=== PATIENT | male | born 1945 | race African-American/Black ===

== ENCOUNTER 2016-08-16 11:19 | Inpatient (IN) ==
[2016-08-16 12:44] LABS: Basophils # 0.1 10*3/uL (0.0-0.2); Basophils % 0.4 % (0.0-0.8); Eosinophils % 0.1 % (0.00-10.9); Hemoglobin 13.2 GM/DL (14.0-18.0); Immature Granulocytes % 1.2 %; Immature Granulocytes Absolute 0.17 #; Lymphocytes # 1.3 10*3/uL (1.4-4.0); Mean Corpuscular HGB Conc 32.2 GM/DL (32-36); Mean Corpuscular Hemoglobin 30 PG (27-34); Mean Corpuscular Volume 91.7 FL (87-102); Mean Platelet Volume 10.1 FL (9.6-12.0); Monocytes # 1.6 10*3/uL (0.11-0.8); Monocytes % 11.4 % (1.7-12.7); Neutrophils # 11.1 10*3/uL (1.4-7.4); Neutrophils % 77.9 % (38.7-73.9); Platelet Count 425 T/CUMM (130-400); Red Blood Count 4.47 MC/CUMM (3.8-5.5); Red Cell Distribution Width 12.3 % (9.3-17.3); White Blood Count 14.3 T/CUMM (4-12)
[2016-08-16 13:13] LABS: Albumin 3.2 G/DL (3.4-5.0); Bilirubin,Total 1.8 MG/DL (0.2-1.0); Calcium 9.3 MG/DL (8.5-10.1); Osmolality,Calculated 274.2 MOS/KG (273-304); Potassium 3.9 MMOL/L (3.5-5.1); Total Protein 8.9 G/DL (6.4-8.3)
--- NOTE | 2016-08-16 13:36 | Emergency Department Note ---
Arrival - Arrival Chief Complaint: Extremity Problem Stated Complaint: gout ED Nursing Triage Note: PT C/O PAIN AND EDEMA TO BILATERAL FEET. STATES RIGHT FOOT HAS BEEN HURTING X1 WEEK AND LEFT FOOT STARTED HURTING THURSDAY. PT STATES TAKING HIS GOUT MEDS WITHOUT RELIEF. Mode of Arrival: Wheelchair Limitations: No Limitations Source: Patient, Family, RN Notes Reviewed Time Seen by Provider: 08/16/16 12:14 - History of Present Illness HPI Narrative: 70yo black male presents to ED with CC of edema and pain to bilateral lower extremities x 1 week. Accompanied by family member. Symptoms are similar to symptoms he has had with gout. He describes the pain as an 8 on a 1-[address] Harris. Pt has not consulted PCP about these symptoms. PMHx significant for HTN, NIDDM, colon cancer in 2007, gout. Patient is normotensive today. Patient states glucometers have been running between 120 and 150. Allergies/Adverse Reactions: Allergies Allergy/AdvReac Type Severity Reaction Status Date / Time No Known Allergies Allergy Verified 08/16/16 11:37 Review of System - Review of System 12 point system: reviewed and no additional remarkable complaints except as stated - Review of System Constitutional: Present: chills Musculoskeletal: Present: joint swelling (Bilateral lower extremities, left worse than right), leg pain Endocrine: Present: polyuria (Says hemoglobin A1c was done about 6 months ago) Medical,Surgical,& Family Hx - Medical History Cardio: History of: Hypertension Endocrine: History of: Diabetes Mellitus (NIDDM) Rheumatology: History of;: Gout Gastrointestinal: History of: Gastrointestinal Cancer (COLON CANCER 2007) - Family History Family History: Reports;: Family Diabetes - Social History Smoking Status: Never smoker Frequency of Alcohol Use: None Type of Drug Use: None Exam Physical Examination: Exam - General General appearance: alert, in no apparent distress - Head Head exam: Present: atraumatic, normocephalic - Eye Eye exam: Present: normal appearance, PERRL, EOMI - ENT ENT exam: Present: normal exam, normal oropharynx, mucous membranes moist - Neck Neck exam: Present: normal inspection, full ROM - Chest Chest inspection: Present: normal inspection, symmetric chest wall rise - Respiratory Respiratory exam: Present: normal lung sounds bilaterally. Absent: rales, rhonchi, wheezes - Cardiovascular Cardiovascular exam: Present: regular rate, normal rhythm, normal heart sounds - Abdominal Exam Abdominal exam: Present: soft, normal bowel sounds. Absent: distention, tenderness - Extremities Exam Extremities exam: Present: Edema to bilateral lower extremities, left worse than right, limited ROAM due to pain, patient says he cannot walk. - Back Exam Back exam: Present: normal inspection - Neurological Exam Neurological exam: Present: alert, oriented X3 - Psychiatric Psychiatric exam: Present: normal affect, normal mood - Skin Skin exam: Present: warm, dry, intact Vital Signs: Vital Signs Temperature 96.8 F L 08/16/16 12:10 Pulse Rate 87 08/16/16 12:10 Respiratory Rate 18 08/16/16 12:10 Blood Pressure 124/62 08/16/16 12:10 O2 Sat by Pulse Oximetry 96 08/16/16 11:33 Course - Consultations Time: 15:45 (Hospitalist service notified of patient presence and status.) Time: 16:10 (Hospitalist here to assess patient. Will admit.) Results - Labs CBC & BMP: 08/16/16 12:22 08/16/16 12:22 Lab Results: I have reviewed the patients labs Labs: Laboratory Tests 08/16/16 12:22 Uric Acid 4.7 - Diagnostic Findings Procedure: Ultrasound: report reviewed by me (No DVT) Disposition Clinical Impression: Cellulitis of lower extremity Disposition: Disch/Xfer-[facility]
--- NOTE | 2016-08-16 15:40 | Ultrasound Report ---
Exam: US venous doppler LE BI Indication: Erythema edema Date: 08/16/2016 1:37 PM Findings: Grayscale color flow duplex/Doppler imaging and spectral analysis waveform imaging was performed with real-time ultrasound with image stored and captured. The right common femoral, superficial femoral, popliteal saphenous veins are patent with normal augmentation and compression. There is no evidence of popliteal or Slater's cyst. Normal wave form analysis present. Normal color flow The left common femoral, superficial femoral, popliteal saphenous veins are patent with normal augmentation and compression. There is no evidence of popliteal or Slater's cyst. Normal wave form analysis present. Normal color flow Impression: 1. No DVT PROCEDURE INTERPRETED AT [facility] DEPARTMENT OF RADIOLOGY Final Report Signed by: Dr. Yao Tomlinson
--- NOTE | 2016-08-16 16:36 | Hospitalist History & Physical ---
<Vladislav Roa - Last Filed: 08/16/16 16:29> Assessment and Plan - Time spent with patient Time spent with patient: Less than 30 minutes (1) Cellulitis of lower extremity Status: Acute Assessment and plan: Moderate edema in lower extremities bilaterally. Very warm to the touch. Admit patient. Start IV antibiotics. Current Visit: Yes (2) Diabetes mellitus Status: Acute Assessment and plan: Accu-Cheks ACHS. Sliding scale protocol. Current Visit: Yes (3) Hypertension Status: Acute Assessment and plan: Continue home medications. Current Visit: Yes History of Present Illness Chief complaint: lower leg edema/pain History of present illness: Mr. Gale is a 70 year old male with a past medical history significant for diabetes mellitus, hypertension, gout who presents to the ER today with complaints of bilateral edema and pain in the lower extremities 1 week. Patient states that the pain first began in his right lower leg about 1 week ago with swelling. About 3 days ago, he began to experience the same pain in his left leg. He states that this inflammation and edema is concentrated in the ankles. Patient does have gout and regularly takes allopurinol as prophylaxis. He states that this pain is very similar to gouty pain, however it is never lasted for this length of time. On exam, patient is lying in bed in no apparent distress. He does have several family members at bedside. Patient's lower extremities are moderately edematous, erythematous, very warm to the touch, and diffusely tender. He denies headache, chest pain, palpitations, abdominal pain, numbness or tingling not otherwise described. Pertinent labs WBC 14.3, hemoglobin 13.2, hematocrit 41.0, sodium 134, chloride 97, BUN 27, creatinine 1.8, glucose 135, uric acid 4.7. Venous Doppler was negative for blood clot. This does not appear to be an acute gout flare. I suspect this may be a cellulitis of some sort. He will be admitted to the hospital medicine team for further evaluation and management. Home Medications Medication Instructions Recorded Confirmed Type Allopurinol [Allopurinol] 300 mg PO DAILY 08/16/16 08/16/16 History Carvedilol [Carvedilol] 6.25 mg PO DAILY 08/16/16 08/16/16 History Lisinopril [Lisinopril] 40 mg PO DAILY 08/16/16 08/16/16 History Metformin HCl [Metformin HCl] 500 mg PO DAILY W/SUPPER 08/16/16 08/16/16 History Potassium Chloride [Klor-Con 8] 8 meq PO BID 08/16/16 08/16/16 History hydroCHLOROthiazide 25 mg PO DAILY 08/16/16 08/16/16 History [Hydrochlorothiazide] sitaGLIPtin [Januvia] 100 mg PO DAILY 08/16/16 08/16/16 History Allergies Allergy/AdvReac Type Severity Reaction Status Date / Time No Known Allergies Allergy Verified 08/16/16 11:37 Medical,Surgical,& Family Hx - Medical History Cardio: History of: Hypertension Endocrine: History of: Diabetes Mellitus (NIDDM) Rheumatology: History of;: Gout Gastrointestinal: History of: Gastrointestinal Cancer (COLON CANCER 2007) - Family History Family History: Reports;: Family Diabetes - Social History Smoking Status: Never smoker Frequency of Alcohol Use: None Type of Drug Use: None Marital Status: Single Lives With:: Alone Functional capacity: independent ambulation - Constitutional Constitutional: Absent: chills, fever(s), headache(s), weakness - EENT Eyes: Absent: blurry vision, loss of vision Ears: Absent: decreased hearing, ear pain Nose, mouth and throat: Absent: headache(s), nasal congestion, neck pain, sore throat - Cardiovascular Cardiovascular: Present: edema. Absent: chest pain at rest, chest pain with activity, dyspnea, dyspnea on exertion, orthopnea - Respiratory Respiratory: Absent: cough, dyspnea, hemoptysis, wheezing, snoring - Gastrointestinal Gastrointestinal: Absent: abdominal pain, change in bowel habits, coffee ground emesis, constipation, diarrhea, nausea - Genitourinary Genitourinary: Absent: difficulty urinating, dysuria, flank pain, hematuria - Musculoskeletal Musculoskeletal: Present: joint swelling. Absent: arthralgias, back pain - Neurological Neurological: Absent: abnormal gait, abnormal speech, numbness, paresthesias - Psychiatric Psychiatric: Absent: anxiety, confusion, depression - Endocrine Endocrine: Absent: cold intolerance, fatigue - Hematologic/Lymphatic Hematologic/Lymphatic: Absent: easy bleeding, easy bruising Exam - Constitutional Vitals: Period Temp Pulse Resp BP Sys/Pierre Pulse Ox Last 24 Hr 96.8 F-96.8 F 87-87 18-18 124-124/62-62 96 General appearance: over weight - Head Head exam: Present: normocephalic, atraumatic. Absent: abrasion, laceration - Eye Eye exam: Present: EOMI. Absent: conjunctival injection, nystagmus Pupils: Present: BHAVANI, normal accommodation. Absent: constricted, dilated - ENT ENT exam: Present: normal exam, normal external ear exam - Neck Neck exam: Absent: lymphadenopathy, meningismus, tenderness - Respiratory Respiratory exam: Present: clear to auscultation bilaterally. Absent: chest wall tenderness, decreased breath sounds, rales, rhonchi, stridor - Cardiovascular Cardiovascular exam: Present: regular rate and rhythm. Absent: bradycardia, carotid bruit - GI/Abdominal GI/Abdominal exam: Present: normal bowel sounds, soft. Absent: ascites, distended, guarding, mass, organomegaly - Extremities Exam Extremities exam: Present: edema, other (cellulitis in left lower leg). Absent : normal capillary refill - Back Exam Back exam: Absent: CVA tenderness (L), CVA tenderness (R), vertebral tenderness - Neurological Exam Neurological exam: Present: alert, oriented X3, CN II-XII intact - Psychiatric Psychiatric exam: Present: normal affect, normal mood - Skin Skin exam: Present: warm, erythema Results - Labs CBC & BMP: 08/16/16 12:22 08/16/16 12:22 Lab Results: I have reviewed the past 24 hour labs <Milagros Rangel R - Last Filed: 08/16/16 20:33> Assessment and Plan (1) Cellulitis of lower extremity Status: Acute Assessment and plan: cont zosyn, blood cx times 2 Current Visit: Yes (2) Acute on chronic renal failure Status: Acute Assessment and plan: renal us, monitor bmp during diuresis Current Visit: Yes (3) Diabetes mellitus Status: Acute Assessment and plan: restart home meds Current Visit: Yes (4) Hypertension Status: Acute Assessment and plan: avoid diuretics and andie/arb for now Current Visit: Yes (5) Edema Status: Acute Assessment and plan: bilateral LE, echo, bnp Current Visit: Yes History of Present Illness History of present illness: Mr. Gale is a 70 year old male seen and examined. He was interviewed and history and physical reviewed and edited. Medical,Surgical,& Family Hx - Surgical History Orthopedic Surgeries: Surgical HX of;: Orthopedic Surgery Exam - Constitutional Vitals: Period Temp Pulse Resp BP Sys/Pierre Pulse Ox Last 24 Hr 100.9 F 103 20 95/61 96 - Skin Skin exam: Absent: rash Results - Labs CBC & BMP: 08/16/16 12:22 08/16/16 12:22 - Diagnostic Findings Procedure: Chest x-ray: report reviewed by me (bilateral shoulder arthritis and rotator cuff ), Ultrasound: report reviewed by me (no dvt )
[2016-08-16] MEDS ORDERED: ACETAMINOPHEN 325 MG TABLET PO PRN ×2 (16:53→17:59)
[2016-08-16] MEDS ORDERED: LACTULOSE 20 GM/30 ML UDCUP PO PRN ×2 (16:53→17:59)
[2016-08-16] MEDS ORDERED: ONDANSETRON 4 MG/2 ML VIAL IV PRN ×2 (16:53→17:59)
[2016-08-16] MEDS ORDERED: DEXTROSE 50% 25 GM/50 ML VIAL IV PRN ×2 (16:53→17:59)
[2016-08-16] MEDS ORDERED: MORPHINE 2 MG/1 ML SYRINGE IV PRN (16:53)
[2016-08-16] MEDS ORDERED: GLUCAGON 1 MG VIAL IM PRN ×2 (16:53→17:59)
[2016-08-16] MEDS ORDERED: ZALEPLON 5 MG CAPSULE PO PRN ×2 (16:53→17:59)
[2016-08-16] MEDS ORDERED: DOCUSATE SODIUM 100 MG CAPSULE PO PRN (16:53)
[2016-08-16] MEDS ORDERED: ENOXAPARIN 40 MG/0.4 ML SYRINGE SUBCUT SCH (17:00)
[2016-08-16] MEDS ORDERED: SODIUM CHLORIDE 0.9% 100 ML IV ONE (18:47)
--- NOTE | 2016-08-16 19:06 | XRay Report ---
Exam: XR chest 1V portable Date: 08/16/2016 5:59 PM Indication: Shortness of breath Comparison: 02/12/2008 Technical:AP portable Findings: The heart is normal in size. Lateral marginal osteophytes are present. High riding appearance of the humeral head present on the right. No obvious infiltrate or effusion. Mediastinum is intact. Impression: 1. No acute cardiopulmonary pathology 2. Degenerative spondylosis change thoracic spine 3. Arthritic change of the shoulders bilaterally with possible rotator cuff pathology of the right with high riding appearance or old trauma not otherwise clarified PROCEDURE INTERPRETED AT [facility] DEPARTMENT OF RADIOLOGY Final Report Signed by: Dr. Yao Tomlinson
[2016-08-16] MEDS: FUROSEMIDE 40 MG/4 ML VIAL IV SCH (19:09)
[2016-08-16] MEDS: cefTRIAXone 1,000 MG in SODIUM CHLORIDE 0.9% 100 ML IV SCH (19:09)
[2016-08-16] MEDS: ENOXAPARIN 40 MG/0.4 ML SYRINGE SUBCUT SCH (19:10)
[2016-08-16] MEDS ORDERED: INSULIN LISPRO 100 UNIT/ML SUBCUT SCH ×2 (21:00)
[2016-08-16] MEDS: PIPERACILLIN/TAZOBACTAM 3,375 MG in SODIUM CHLORIDE 0.9% 100 ML IV SCH (21:42)
[2016-08-16] MEDS: INSULIN LISPRO 100 UNIT/ML SUBCUT SCH (21:45)
[2016-08-17 04:09] LABS: Basophils # 0.1 10*3/uL (0.0-0.2); Basophils % 0.5 % (0.0-0.8); Eosinophils % 0.3 % (0.00-10.9); Immature Granulocytes % 1.3 %; Immature Granulocytes Absolute 0.16 #; Lymphocytes # 2.1 10*3/uL (1.4-4.0); Lymphocytes % 16.8 % (21.2-54.2); Mean Corpuscular HGB Conc 33.3 GM/DL (32-36); Mean Corpuscular Hemoglobin 30 PG (27-34); Mean Corpuscular Volume 88.7 FL (87-102); Mean Platelet Volume 10.3 FL (9.6-12.0); Monocytes # 1.6 10*3/uL (0.11-0.8); Monocytes % 12.6 % (1.7-12.7); Neutrophils # 8.4 10*3/uL (1.4-7.4); Neutrophils % 68.5 % (38.7-73.9); Platelet Count 427 T/CUMM (130-400); Red Blood Count 4.06 MC/CUMM (3.8-5.5); Red Cell Distribution Width 12.2 % (9.3-17.3); White Blood Count 12.3 T/CUMM (4-12)
[2016-08-17 04:35] LABS: Calcium 8.6 MG/DL (8.5-10.1); Potassium 3.7 MMOL/L (3.5-5.1)
[2016-08-17] MEDS: PIPERACILLIN/TAZOBACTAM 3,375 MG in SODIUM CHLORIDE 0.9% 100 ML IV SCH ×3 (06:12→21:32)
[2016-08-17] MEDS ORDERED: FUROSEMIDE 40 MG/4 ML VIAL IV SCH (09:00)
[2016-08-17] MEDS ORDERED: CARVEDILOL 3.125 MG TABLET PO SCH (09:00)
[2016-08-17] MEDS ORDERED: CARVEDILOL 6.25 MG TABLET PO SCH (09:00)
[2016-08-17] MEDS: INSULIN LISPRO 100 UNIT/ML SUBCUT SCH ×3 (09:05→16:56)
[2016-08-17] MEDS: PANTOPRAZOLE 40 MG TABLET PO SCH (09:17)
[2016-08-17] MEDS: sitaGLIPtin 100 MG TABLET PO SCH (09:18)
[2016-08-17] MEDS: FUROSEMIDE 40 MG/4 ML VIAL IV SCH (10:56)
--- NOTE | 2016-08-17 11:05 | Ultrasound Report ---
Exam: US renal Bilateral Date: 08/17/2016 5:59 PM Indication: Abnormal creatinine acute versus chronic Comparison: None Findings: Right kidney. 10.6 x 5.2 x 6.2 cm there is mild increased echogenicity. No hydronephrosis or perinephric fluid collection. A tiny cysts measures 10 x 9 mm on the mid pole region. The left kidney measures 11.7 x 7 x 6 cm 18 x 15 x 13 mm cyst in the upper pole. Increased echogenicity is present. Impression: 1. Simple appearing cysts of the kidneys bilaterally 2. Mild medical renal disease without obstructive uropathy Ultrasound images were stored and captured PROCEDURE INTERPRETED AT [facility] DEPARTMENT OF RADIOLOGY Final Report Signed by: Dr. Yao Tomlinson
--- NOTE | 2016-08-17 13:32 | Hospitalist Progress Note ---
Assessment and Plan (1) Cellulitis of lower extremity Status: Acute Assessment and plan: cont zosyn, blood cx times 2 pending Current Visit: Yes (2) Acute on chronic renal failure Status: Acute Assessment and plan: renal us shows medical renal disease will stop diuresis Current Visit: Yes (3) Diabetes mellitus Status: Acute Assessment and plan: Continue Januvia would avoid metformin Current Visit: Yes (4) Hypertension Status: Acute Assessment and plan: Patient's blood pressures been running low not high. Hold all blood pressure medicines, will check Current Visit: Yes (5) Edema Status: Acute Assessment and plan: bilateral LE improved with Lasix, echo pending, bnp low not high but his hyponatremia improved with Lasix. Will check orthostatics. Current Visit: Yes Hospitalist: Subjective Interval history: Patient swelling in his leg is much better today. Erythema is almost completely resolved. His BNP was low and I have DC'd his Lasix. Patient still has been no effort to get out of bed. Will have PT evaluate him tomorrow. Exam - Constitutional Vitals: Period Temp Pulse Resp BP Sys/Pierre Pulse Ox Last 24 Hr 98.1 F-102.9 F 83-103 20-20 95-127/47-64 95-96 Exam: Heart Rate-[RRR] Lungs-[CTAB] GI-[+bs soft, NT] Ext-[slight edema but no erythema] Neuro [Motor 5/5], [alert and oriented times 3] psych [normal mood and affect] General [no acute distress] Results - Labs CBC & BMP: 08/17/16 03:24 08/17/16 03:24 Lab Results: I have reviewed the past 24 hour labs Labs: Blood cultures 2 are pending - Diagnostic Findings Procedure: Ultrasound: report reviewed by me (Medical renal disease without evidence of obstruction)
[2016-08-17] MEDS ORDERED: SODIUM CHLORIDE 0.9% 500 ML IV ONE (14:08)
[2016-08-17] MEDS: SODIUM CHLORIDE 0.9% 1,000 ML IV SCH (14:58)
[2016-08-17] MEDS: cefTRIAXone 1,000 MG in SODIUM CHLORIDE 0.9% 100 ML IV SCH (16:49)
[2016-08-17] MEDS: ENOXAPARIN 40 MG/0.4 ML SYRINGE SUBCUT SCH (17:47)
--- NOTE | 2016-08-17 17:52 | XRay Report ---
Exam: XR knee 3V RT Date: 08/17/2016 2:07 PM Indication: Pain and swelling Comparison: None Technical: AP lateral Findings: Small joint effusion is present in the suprapatella bursa. Mild narrowing of the lateral aspect joint with moderate narrowing of the medial joint space and patellofemoral joint space with spur formation along the superior inferior posterior margins of the patella and medial aspect of the femoral condyle and tibial plateau. The distal femur proximal tibia and fibula and patella reveal no fracture. Impression: 1. Tricompartment degenerative osteoarthritis as described with small joint effusion without fracture PROCEDURE INTERPRETED AT [facility] DEPARTMENT OF RADIOLOGY Final Report Signed by: Dr. Yao Tomlinson
--- NOTE | 2016-08-17 17:57 | ECHO Report ---
Gt Gale Exam Date: 08/17/2016 10:05 Referring Physician: Technologist: Lana Chang Age: 70 Ht (in): 68 Wt (lb): 185 Gender: M Exam Location: [facility] Echo Indications: diabetes, HTN, SOB, edema, acute renal failure BP: 118 / 64 HR: 86 Rhythm: Sinus Technical Quality: Fair IMPRESSIONS Normal LV systolic function, ejection fraction 60%. Grade 1/4 diastolic dysfunction. Mild to moderate concentric left ventricular hypertrophy. Aortic sclerosis without stenosis. Trace tricuspid regurgitation. MEASUREMENTS (Male / Female) Normal Values 2D ECHO LV Diastolic Diameter PLAX 4.0 cm 4.2 - 5.9 / 3.9 - 5.3 cm LV Systolic Diameter PLAX 3.0 cm LV Fractional Shortening PLAX 25.4 % IVS Diastolic Thickness 1.6 cm 0.6 - 1.0 / 0.6 - 0.9 cm LVPW Diastolic Thickness 1.2 cm 0.6 - 1.0 / 0.6 - 0.9 cm RV Internal Dim ED PLAX 2.6 cm Aortic Root Diameter 2.4 cm LA Systolic Diameter LX 3.5 cm 3.0 - 4.0 / 2.7 - 3.8 cm DOPPLER TR Peak Velocity 175.0 cm/s TR Peak Gradient 12.3 mmHg FINDINGS Left Ventricle Normal left ventricular cavity size. Mild to moderate concentric left ventricular hypertrophy with diastolic dysfunction. Left ventricular ejection fraction is estimated at 60 %. Right Ventricle Normal right ventricular size. Right Atrium Normal right atrial size. Left Atrium Normal left atrial size. Mitral Valve Mild mitral valve sclerosis. Aortic Valve Mild aortic valve sclerosis without stenosis or regurgitation. Tricuspid Valve Morphologically normal tricuspid valve. Trace tricuspid valve regurgitation. Pulmonic Valve Morphologically normal pulmonic valve. Pericardium No pericardial effusion. Aorta Normal size aortic root and proximal ascending aorta. Marely Salamanca MD (Electronically Signed) Final Date: 17 August 2016 17:56
[2016-08-17] MEDS: ACETAMINOPHEN 325 MG TABLET PO PRN (21:38)
[2016-08-18] MEDS: INSULIN LISPRO 100 UNIT/ML SUBCUT SCH ×5 (04:14→21:00)
[2016-08-18] MEDS: SODIUM CHLORIDE 0.9% 1,000 ML IV SCH (04:16)
[2016-08-18 04:51] LABS: Basophils # 0.1 10*3/uL (0.0-0.2); Basophils % 0.5 % (0.0-0.8); Eosinophils # 0.1 10*3/uL (0.0-0.87); Eosinophils % 0.5 % (0.00-10.9); Hematocrit 34.8 VOL% (42.0-52.0); Hemoglobin 11.6 GM/DL (14.0-18.0); Immature Granulocytes Absolute 0.12 #; Lymphocytes # 1.9 10*3/uL (1.4-4.0); Lymphocytes % 15.4 % (21.2-54.2); Mean Corpuscular HGB Conc 33.3 GM/DL (32-36); Mean Corpuscular Hemoglobin 30 PG (27-34); Mean Platelet Volume 10.6 FL (9.6-12.0); Monocytes # 1.5 10*3/uL (0.11-0.8); Neutrophils # 8.9 10*3/uL (1.4-7.4); Neutrophils % 70.6 % (38.7-73.9); Platelet Count 451 T/CUMM (130-400); Red Blood Count 3.91 MC/CUMM (3.8-5.5); Red Cell Distribution Width 12.3 % (9.3-17.3); White Blood Count 12.6 T/CUMM (4-12)
[2016-08-18 05:12] LABS: Calcium 8.6 MG/DL (8.5-10.1); Osmolality,Calculated 277.5 MOS/KG (273-304)
[2016-08-18] MEDS: PIPERACILLIN/TAZOBACTAM 3,375 MG in SODIUM CHLORIDE 0.9% 100 ML IV SCH ×3 (06:12→22:05)
[2016-08-18] MEDS: PANTOPRAZOLE 40 MG TABLET PO SCH (09:30)
[2016-08-18] MEDS: sitaGLIPtin 100 MG TABLET PO SCH (09:30)
--- NOTE | 2016-08-18 13:06 | Hospitalist Progress Note ---
Assessment and Plan (1) Cellulitis of lower extremity Status: Acute Assessment and plan: 1)cellulitis RLE- his legs look normal today. HE says all the edema and erythema has resolved.He has been afebrile. His WBC is near normal. He is tolerating antibiotics. 2)EDSON- resolved with hydration, but I suspect the Duexis he has been on contributed to his renal failure. He should take tylenol for his arthritis pain. renal US showed medical renal disease. 3)right hand MCP stiffness and swelling- denies trauma, suspect DJD from OA. Xray today. 4)debility- PT to see 5)orthostatic hypotension- resolved. Early SBP recorded in the 90s and antiHTN meds held. echo with normal EF. Current Visit: Yes (2) Diabetes mellitus Status: Chronic Current Visit: Yes (3) Hypertension Status: Acute Current Visit: Yes (4) Acute on chronic renal failure Status: Resolved Current Visit: Yes (5) Edema Status: Resolved Current Visit: Yes Hospitalist: Subjective Interval history: Mr Gale feels ok today though his right hand is stiff at the MCP joints of his 2nd and 3rd fingers- normal at wrist and elbow. He has findings of OA at the DIP and PIP joints of both hands with deviation of the fingers, but he moves better at the other joints. He was on Duexis for his OA, and he says it helped. The NSAID component may have contributed to his mild worsening of his renal failure which has improved with hydration. Exam - Constitutional Vitals: Period Temp Pulse Resp BP Sys/Pierre Pulse Ox Last 24 Hr 97.5 F-101.7 F 83-96 19-24 113-135/58-72 97-99 General appearance: normal weight, no acute distress - Head Head exam: Present: normocephalic, atraumatic - Eye Eye exam: Present: EOMI. Absent: scleral icterus - Respiratory Respiratory exam: Present: clear to auscultation bilaterally - Cardiovascular Cardiovascular exam: Present: regular rate and rhythm - GI/Abdominal GI/Abdominal exam: Present: normal bowel sounds, soft. Absent: tenderness - Extremities Exam Extremities exam: Present: other (see hand exam in HPI). Absent: edema - Neurological Exam Neurological exam: Present: alert, oriented X3 - Psychiatric Psychiatric exam: Present: normal affect, normal mood - Skin Skin exam: Present: warm, dry Results - Labs CBC & BMP: 08/18/16 02:38 08/18/16 02:38 Lab Results: I have reviewed the past 24 hour labs
--- NOTE | 2016-08-18 15:48 | XRay Report ---
Exam: XR hand 2V RT Date: 08/18/2016 1:02 PM Indication: Stiffness swelling Comparison: None Technical: AP lateral image Findings: The radius and ulna reveal no fractures is narrowing of the radiocarpal joint space the carpal bones are intact. The metacarpals reveal no obvious fracture with minimal degenerative changes. The phalanges reveal degenerative changes along the proximal and distal interphalangeal joints involving the second third and fourth digits. Mild degenerative changes interphalangeal joint of the thumb with minimal changes of the PIP joint of the fifth digit. Soft tissue swelling most prominent over the DIP joint of the third digit Impression: 1. Degenerative osteoarthritic changes present. 2. No fracture dislocation PROCEDURE INTERPRETED AT [facility] DEPARTMENT OF RADIOLOGY Final Report Signed by: Dr. Yao Tomlinson
[2016-08-18] MEDS: ACETAMINOPHEN 325 MG TABLET PO PRN (19:22)
[2016-08-18] MEDS: ENOXAPARIN 40 MG/0.4 ML SYRINGE SUBCUT SCH (21:16)
[2016-08-19] MEDS: SODIUM CHLORIDE 0.9% 1,000 ML IV SCH ×2 (02:43)
[2016-08-19] MEDS: PIPERACILLIN/TAZOBACTAM 3,375 MG in SODIUM CHLORIDE 0.9% 100 ML IV SCH ×3 (04:24→20:14)
[2016-08-19 05:17] LABS: Basophils # 0.1 10*3/uL (0.0-0.2); Basophils % 0.5 % (0.0-0.8); Eosinophils # 0.1 10*3/uL (0.0-0.87); Eosinophils % 0.7 % (0.00-10.9); Hematocrit 37.1 VOL% (42.0-52.0); Hemoglobin 11.8 GM/DL (14.0-18.0); Immature Granulocytes % 1.2 %; Immature Granulocytes Absolute 0.17 #; Lymphocytes # 1.7 10*3/uL (1.4-4.0); Lymphocytes % 11.8 % (21.2-54.2); Mean Corpuscular HGB Conc 31.8 GM/DL (32-36); Mean Corpuscular Hemoglobin 29 PG (27-34); Mean Corpuscular Volume 91.6 FL (87-102); Mean Platelet Volume 10.1 FL (9.6-12.0); Monocytes # 1.5 10*3/uL (0.11-0.8); Monocytes % 9.9 % (1.7-12.7); Neutrophils # 11.2 10*3/uL (1.4-7.4); Neutrophils % 75.9 % (38.7-73.9); Platelet Count 476 T/CUMM (130-400); Red Blood Count 4.05 MC/CUMM (3.8-5.5); Red Cell Distribution Width 12.1 % (9.3-17.3); White Blood Count 14.7 T/CUMM (4-12)
[2016-08-19 05:43] LABS: Calcium 8.4 MG/DL (8.5-10.1); Osmolality,Calculated 274.7 MOS/KG (273-304); Potassium 4.1 MMOL/L (3.5-5.1)
--- NOTE | 2016-08-19 09:30 | Hospitalist Progress Note ---
Assessment and Plan (1) Cellulitis of lower extremity Status: Acute Assessment and plan: 1)RLE celllulitis, now with right knee increased pain, joint effusion, fever to 101 last night- suspect septic arthritis- add Vanc, consult ortho for tap/ evaluation. WBC hanging around 14. 2)EDSON- resolved, may be due in part to NSAIDS he was taking for arthritis. 3)OA- right hand XR with degenerative changes or OA. 4)debility- PT treating 5)orthostatic hypotension- probably related to sepsis on admit from cellulitis. resolved now. 6)dispo- probably a swing bed. I called his daughter as he requested but she didn't answer. will try again. Current Visit: Yes (2) Diabetes mellitus Status: Chronic Current Visit: Yes (3) Hypertension Status: Acute Current Visit: Yes (4) Acute on chronic renal failure Status: Resolved Current Visit: Yes (5) Edema Status: Resolved Current Visit: Yes Hospitalist: Subjective Interval history: Mr Gale is feeling good today. He denies shortness of breath, GI symptoms, rash , sinus congestions. He had a fever to 101 last night. His cellulitis in his lower extremities is resolved, but his right knee is more prominently swollen and tender and warm today. He reports significant pain in that knee. He has had swelling and pain there before from his OA. Exam - Constitutional Vitals: Period Temp Pulse Resp BP Sys/Pierre Pulse Ox Last 24 Hr 97.9 F-101.1 F 86-100 18-20 125-144/69-79 96-99 General appearance: normal weight, no acute distress - Head Head exam: Present: normocephalic, atraumatic - Eye Eye exam: Present: EOMI. Absent: scleral icterus - Respiratory Respiratory exam: Present: clear to auscultation bilaterally - Cardiovascular Cardiovascular exam: Present: regular rate and rhythm - GI/Abdominal GI/Abdominal exam: Present: normal bowel sounds, soft. Absent: tenderness - Extremities Exam Extremities exam: Present: other (both knees with loss of joint space consistent with degenerative arthritis but today right knee with larger effusion than yesterday, warm and tender. No effusion on left. no edema in calves/ankles/ feet. right knee sore to move as well.). Absent: edema - Neurological Exam Neurological exam: Present: alert, oriented X3 - Psychiatric Psychiatric exam: Present: normal affect, normal mood - Skin Skin exam: Present: warm, dry Results - Labs CBC & BMP: 08/19/16 04:24 08/19/16 04:24 Lab Results: I have reviewed the past 24 hour labs (and results of the hand xr from yesterday.)
[2016-08-19] MEDS: sitaGLIPtin 100 MG TABLET PO SCH (10:25)
[2016-08-19] MEDS: PANTOPRAZOLE 40 MG TABLET PO SCH (10:26)
[2016-08-19] MEDS: INSULIN LISPRO 100 UNIT/ML SUBCUT SCH ×4 (10:26→21:00)
--- NOTE | 2016-08-19 12:01 | Orthopedic Consult Note ---
History of Present Illness Chief complaint: Right knee pain / effusion History of present illness: Mr. Gale is a 70 year old male See dictated reports Aspirate 40 cc hemorrhagic no pus sent for cultures cell count crystal analysis Home Medications Medication Instructions Recorded Confirmed Type Allopurinol [Allopurinol] 300 mg PO DAILY 08/16/16 08/16/16 History Carvedilol [Carvedilol] 6.25 mg PO DAILY 08/16/16 08/16/16 History Lisinopril [Lisinopril] 40 mg PO DAILY 08/16/16 08/16/16 History Metformin HCl [Metformin HCl] 500 mg PO DAILY W/SUPPER 08/16/16 08/16/16 History Potassium Chloride [Klor-Con 8] 8 meq PO BID 08/16/16 08/16/16 History hydroCHLOROthiazide 25 mg PO DAILY 08/16/16 08/16/16 History [Hydrochlorothiazide] sitaGLIPtin [Januvia] 100 mg PO DAILY 08/16/16 08/16/16 History Allergies Allergy/AdvReac Type Severity Reaction Status Date / Time No Known Allergies Allergy Verified 08/16/16 11:37 Medical,Surgical,& Family Hx - Medical History Cardio: History of: Hypertension Endocrine: History of: Diabetes Mellitus (NIDDM) Rheumatology: History of;: Gout Gastrointestinal: History of: Gastrointestinal Cancer (COLON CANCER 2007) - Surgical History Orthopedic Surgeries: Surgical HX of;: Orthopedic Surgery - Family History Family History: Reports;: Family Diabetes - Social History Smoking Status: Never smoker Frequency of Alcohol Use: None Type of Drug Use: None Exam - Constitutional Vitals: Period Temp Pulse Resp BP Sys/Pierre Pulse Ox Last 24 Hr 98.4 F-101.1 F 86-100 18-20 125-144/69-79 96-99 Results - Labs CBC & BMP: 08/19/16 04:24 08/19/16 04:24
[2016-08-19 13:23] LABS: Cholesterol Crystals None Seen /LPF
[2016-08-19 13:54] LABS: Lymphocytes,Synovial Fluid 2 %; Neutrophils,Synovial Fluid 98 %
[2016-08-19] MEDS: VANCOMYCIN INJ 1,250 MG in SODIUM CHLORIDE 0.9% 250 ML IV SCH (13:54)
[2016-08-19] MEDS: ACETAMINOPHEN 325 MG TABLET PO PRN (17:02)
--- NOTE | 2016-08-19 17:51 | Consultation ---
DATE OF CONSULT: 08/19/2016 A 70-year-old black male admitted to the hospital service for numerous medical problems and admitted for lower extremity edema and cellulitis. His white count has remained elevated on antibiotics. I have been asked to evaluate regarding the persistence of right knee pain. This has been ongoing fo r at least a week. No history of any trauma or injury. He does have a history of arthritis and by reports takes allopurinol for gout. CLINICAL EXAMINATION GENERAL: A thin black male, the right knee confirms a moderately large effusion. He will tolerate about a 40-degree arc of motion from 10 to about 60 degrees. He is minimally point tender, mild war mth. I do not appreciate any erythema or cellulitis about the knee. There is no pain more proximal ly about the hip or distally over tib-fib or ankle. RADIOGRAPHS: Confirmed age-related degenerative changes, tricompartmental right knee. IMPRESSION: Right knee pain and effusion. PLAN: I discussed with he and his family/ presented at the diagnosis and treatment options going forwa rd. I think it is important per the medical service to rule out any infectious process clinically. He does not have a septic knee. Under sterile prep and local infiltration, approximately 40 cc of a bloody synovial fluid was aspirated. Did not have the consistency of any pus. It was sent for ce ll count, cultures and crystal analysis. Hopefully with the decompression, he achieved some pain re lief quickly. Again I do not believe this represent a septic joint clinically or after aspiration. We will follow. Thank you for the consultation.
[2016-08-19] MEDS: ENOXAPARIN 40 MG/0.4 ML SYRINGE SUBCUT SCH (20:46)
[2016-08-19] MEDS: ZALEPLON 5 MG CAPSULE PO PRN (20:48)
[2016-08-20] MEDS: SODIUM CHLORIDE 0.9% 1,000 ML IV SCH ×2 (02:48→02:49)
[2016-08-20] MEDS: PIPERACILLIN/TAZOBACTAM 3,375 MG in SODIUM CHLORIDE 0.9% 100 ML IV SCH ×2 (04:01→14:20)
[2016-08-20] MEDS: VANCOMYCIN INJ 1,250 MG in SODIUM CHLORIDE 0.9% 250 ML IV SCH ×2 (04:26→20:01)
[2016-08-20 06:27] LABS: Basophils # 0.1 10*3/uL (0.0-0.2); Basophils % 0.6 % (0.0-0.8); Eosinophils # 0.2 10*3/uL (0.0-0.87); Eosinophils % 1.1 % (0.00-10.9); Hematocrit 35.5 VOL% (42.0-52.0); Hemoglobin 11.3 GM/DL (14.0-18.0); Immature Granulocytes % 1.5 %; Immature Granulocytes Absolute 0.23 #; Lymphocytes # 1.8 10*3/uL (1.4-4.0); Lymphocytes % 12.1 % (21.2-54.2); Mean Corpuscular HGB Conc 31.8 GM/DL (32-36); Mean Corpuscular Hemoglobin 29 PG (27-34); Mean Corpuscular Volume 91.5 FL (87-102); Mean Platelet Volume 10.2 FL (9.6-12.0); Monocytes # 1.4 10*3/uL (0.11-0.8); Monocytes % 9.1 % (1.7-12.7); Neutrophils # 11.3 10*3/uL (1.4-7.4); Neutrophils % 75.6 % (38.7-73.9); Platelet Count 480 T/CUMM (130-400); Red Blood Count 3.88 MC/CUMM (3.8-5.5); Red Cell Distribution Width 12.3 % (9.3-17.3); White Blood Count 14.9 T/CUMM (4-12)
[2016-08-20 06:53] LABS: Calcium 8.1 MG/DL (8.5-10.1); Osmolality,Calculated 276.5 MOS/KG (273-304); Potassium 4.1 MMOL/L (3.5-5.1)
--- NOTE | 2016-08-20 08:38 | Orthopedic Progress Note ---
Orthopedics - Subjective Interval history: Patient states knee is feeling better this morning can actively flex about 60 minimal effusion no warmth. Cell count reveals 30,000 white but over 100,000 red consistent with hemorrhagic effusion I suspect this is related to the underlying degenerative process or or even the gout is also having multiple IP MP joint swelling in both hands. Discussed with nurse using an ice pack as needed Langman mobilize as tolerated we will consider Indocin 75 SR once a day should get immediate result if the joint pains or gout related. Gram stain negative Exam - Constitutional Vitals: Period Temp Pulse Resp BP Sys/Pierre Pulse Ox Last 24 Hr 98.3 F-101.2 F 81-101 18-20 119-127/60-72 95-98 Results - Labs CBC & BMP: 08/20/16 05:02 08/20/16 05:02
--- NOTE | 2016-08-20 09:03 | XRay Report ---
Single view of the chest. Indication: Fever. Comparison: August 16, 2016. The heart is normal in size. There is mild stable prominence of the ascending aorta. Calcified granulomas are noted in the left lung parenchyma. The pulmonary vasculature is normal. The lung arauz are clear. No pneumothorax or pleural effusion. Degenerative changes of the spinal column and shoulders. Impression: No acute abnormality. PROCEDURE INTERPRETED AT [facility] DEPARTMENT OF RADIOLOGY Final Report Signed by: Dr. Ophelia Camacho
[2016-08-20] MEDS: sitaGLIPtin 100 MG TABLET PO SCH (09:23)
[2016-08-20] MEDS: PANTOPRAZOLE 40 MG TABLET PO SCH (09:23)
[2016-08-20] MEDS: INSULIN LISPRO 100 UNIT/ML SUBCUT SCH ×3 (09:23→15:36)
--- NOTE | 2016-08-20 11:47 | Hospitalist Progress Note ---
Assessment and Plan - Time spent with patient Time spent with patient: Greater than 30 minutes (1) Physical debility Status: Acute Assessment and plan: 70-year-old -[place]ym[place] male admitted with lower extremity cellulitis and edema and fevers. UA, chest x-ray, blood cultures have all been negative. Patient did have some joint effusion of the right knee that has been tapped that is found to not be infectious. Patient's white count is still hanging around 14 and no infectious process has been found. His cellulitis is resolved , acute kidney injury has resolved, and his orthostatic hypotension has resolved. OA--right hand pain and right knee pain and effusion indicative of OA. Dr. Robison is following the patient and recommended ice and Indocin. Pain and swelling could be gout as well. He is being treated for this. Debility--patient is being treated by physical therapy. He has requested swing bed placement for rehab. Will discuss this with social contact worker and if patient remains afebrile today and overnight can possibly be discharged to swing bed tomorrow. All of this is been discussed with Dr. Ortega. Further recommendations to follow. Current Visit: Yes (2) Osteoarthritis Status: Acute Current Visit: Yes (3) Cellulitis of lower extremity Status: Acute Current Visit: Yes (4) Diabetes mellitus Status: Chronic Current Visit: Yes (5) Hypertension Status: Acute Current Visit: Yes (6) Acute on chronic renal failure Status: Resolved Current Visit: Yes Hospitalist: Subjective Interval history: Patient is sitting up in the chair with his legs elevated and family present. He has no complaints at this time. Last documented fever was 101.2 at 1702 yesterday afternoon. patient has been afebrile since then. His white count is up to 14.9 today and he is on Zosyn and vanc. Dr. Robison from orthopedics has seen the patient and he states patient's right knee tap is consistent with hemorrhagic effusion related to underlying degenerative process or even gout. He has recommended ice packs as needed and Indocin daily for pain. Patient states he used to use a cane at home and has been requiring a walker since admission. He is ambulating some in the room with walker and physical therapy and is requesting to go to swing bed in [place] Upon discharge. Exam - Constitutional Vitals: Period Temp Pulse Resp BP Sys/Pierre Pulse Ox Last 24 Hr 98.3 F-101.2 F 81-101 18-20 106-127/60-75 95-98 Exam: 70-year-old -[place]ym[place] male, no acute distress, alert and oriented Chest clear CV regular rate and rhythm Abdomen soft and nontender Extremities right lower extremity with edema of the right knee that is nontender and non-erythematous, no edema of the lower leg. Left lower extremity with some minimal edema around the ankle that is nontender and not erythematous as well. Results - Labs CBC & BMP: 08/20/16 05:02 08/20/16 05:02 Lab Results: I have reviewed the past 24 hour labs - Diagnostic Findings Procedure: Chest x-ray: report reviewed by me (No acute process)
[2016-08-20] MEDS: INDOMETHACIN SR 75 MG CAPSULE PO SCH (14:20)
[2016-08-20] MEDS: ACETAMINOPHEN 325 MG TABLET PO PRN (16:48)
[2016-08-20] MEDS: MEROPENEM 1,000 MG in SODIUM CHLORIDE 0.9% 100 ML IV SCH (18:28)
--- NOTE | 2016-08-20 19:24 | CT Report ---
Exam: CT sinus wo con Date: 08/20/2016 4:15 PM Comparison: None Indication: Fever unknown origin Total DLP: 458.1 mGy*cm Technical: axial, sagittal and coronal images were obtained through the maxillofacial sinuses and bones without intravenous contrast. Dose reduction was performed with decreasing kv and mA and automated exposure Findings: The frontal sinuses are unremarkable. The maxillary sinuses are demonstrated with minimal mucoperiosteal thickening along the right maxillary antrum. The left maxillary sinus reveals very minimal mucoperiosteal thickening Ethmoid sinuses are demonstrated with mild inflammation bilaterally The sphenoid sinuses are unremarkable. The ostiomeatal complex is intact. The nasal septum is slightly deviated towards the left.. The mastoid sinuses are unremarkable. The facial bones are unremarkable. The globes are intact. No intra-extraconal abnormalities are noted. Multiple dental extractions noted. Impression: 1. Minimal inflammation in the ethmoid and maxillary antra bilaterally PROCEDURE INTERPRETED AT [facility] DEPARTMENT OF RADIOLOGY Final Report Signed by: Dr. Yao Tomlinson
--- NOTE | 2016-08-20 19:32 | CT Report ---
Exam:CT chest w con Date:08/20/2016 4:36 PM Indication: Fever of unknown origin Comparison: 12/07/2014 Technical: Images were obtained from the thoracic inlet through the lung bases with 100 cc of contrast. Axial sagittal and coronal imaging was available for review. Dose reduction was performed with decreasing kv and mA and automated exposure Total DLP: 980.3 mGy*cm Findings: The thyroid gland, trachea and esophagus are unremarkable. The anterior middle and posterior mediastinum are demonstrated with small shoddy nodes in the lateral aortic zacarias chain aortopulmonic window. No bulky adenopathy present. Small nodes present in the carinal region. Lymph nodes all measure less than 1 cm. The heart and pulmonary artery are unremarkable. ASVD is present in the aorta. Mild coronary artery calcifications also present The lungs are demonstrated with some dependent atelectatic change present bilaterally. Minimal pleural thickening right base The bony structures are demonstrated with degenerative spondylosis change present. Impression: 1. Minimal atelectatic change pleural thickening right lung base 2. Minimal vascular calcification aorta with coronary artery calcifications 3. No pneumothorax or obvious consolidating pneumonic infiltrate or mass lesion present. Exam: CT abdomen pelvis w con Date: 08/20/2016 4:36 PM Comparison: As above Indication: Fever of unknown origin Total DLP: As above mGy*cm Technical: Oral contrast was administered Images were obtained from the lung bases to the iliac crest continuation through the pelvis with 100 cc of Omnipaque 350 with axial sagittal coronal imaging available for review. Dose reduction was performed with decreasing kv and mA and automated exposure Findings: Liver and Spleen: Liver hepatic and portal veins are unremarkable. Spleen is intact. Gallbladder and Pancreas: Unremarkable Adrenals: Unremarkable Kidneys: Some scarring in the right kidney along the cortical margins. No obstruction present. There is a cyst on the left kidney that measures 1.7 cm. Stomach: Incomplete distended with contrast air-fluid and debris Retroperitoneum: No enlarged lymph nodes. Aorta and IVC: Vascular plaque in the aorta iliac vessels. No obvious aneurysm. IVC is patent. Bowel and Mesentery: Some thickening of the bowel wall in the rectosigmoid colon. No evidence of appendicitis or diverticulosis diverticulitis present. Pelvis: Bladder: Incompletely distended with fluid Fluid: No free fluid identified. Lymph nodes: No enlarged lymph nodes. Pelvic organs: Minimal prostate calcifications without enlargement the prostate gland. Osseous structures: Mild facet arthropathy degenerative spondylosis present thoracolumbar spine Impression: 1. Edema and thickening of the bowel wall in the lower rectum. This could represent component of mild proctitis or colitis not otherwise clarified 2. Vascular calcinosis 3. Simple cyst of the left kidney PROCEDURE INTERPRETED AT [facility] DEPARTMENT OF RADIOLOGY Final Report Signed by: Dr. Yao Tomlinson
[2016-08-20] MEDS: ZALEPLON 5 MG CAPSULE PO PRN (22:08)
[2016-08-20] MEDS: ENOXAPARIN 40 MG/0.4 ML SYRINGE SUBCUT SCH (23:46)
[2016-08-21 05:42] LABS: Basophils # 0.1 10*3/uL (0.0-0.2); Basophils % 0.5 % (0.0-0.8); Eosinophils # 0.2 10*3/uL (0.0-0.87); Eosinophils % 1.7 % (0.00-10.9); Hematocrit 34.2 VOL% (42.0-52.0); Hemoglobin 11.3 GM/DL (14.0-18.0); Immature Granulocytes % 1.8 %; Immature Granulocytes Absolute 0.22 #; Lymphocytes # 1.5 10*3/uL (1.4-4.0); Lymphocytes % 12.4 % (21.2-54.2); Mean Corpuscular Hemoglobin 30 PG (27-34); Mean Corpuscular Volume 90.2 FL (87-102); Mean Platelet Volume 9.6 FL (9.6-12.0); Monocytes % 8.4 % (1.7-12.7); Neutrophils # 9.1 10*3/uL (1.4-7.4); Neutrophils % 75.2 % (38.7-73.9); Platelet Count 445 T/CUMM (130-400); Red Blood Count 3.79 MC/CUMM (3.8-5.5); White Blood Count 12.1 T/CUMM (4-12)
[2016-08-21] MEDS: INSULIN LISPRO 100 UNIT/ML SUBCUT SCH ×5 (05:52→22:11)
[2016-08-21] MEDS: MEROPENEM 1,000 MG in SODIUM CHLORIDE 0.9% 100 ML IV SCH ×3 (06:02→16:38)
[2016-08-21 06:13] LABS: Calcium 7.8 MG/DL (8.5-10.1); Osmolality,Calculated 281.3 MOS/KG (273-304); Potassium 3.8 MMOL/L (3.5-5.1)
[2016-08-21 06:15] LABS: Band Neutrophils 3 % (0-10); Elliptocytes Few; Eosinophils 2 % (0-10); Hypochromasia 1+; Lymphocytes 11 % (20-55); Platelet Estimate Adequate; Segmented Neutrophils 73 % (50-85); Total Cells Counted 100
[2016-08-21] MEDS: VANCOMYCIN INJ 1,250 MG in SODIUM CHLORIDE 0.9% 250 ML IV SCH ×2 (07:32→21:12)
--- NOTE | 2016-08-21 08:22 | Orthopedic Progress Note ---
Orthopedics - Subjective Interval history: Continued improvement active range of motion better than yesterday minimal swelling trace amount of warmth. Cultures negative. I believe an effusion was related to inflammatory process arthritis versus gout, improving Exam - Constitutional Vitals: Period Temp Pulse Resp BP Sys/Pierre Pulse Ox Last 24 Hr 97.9 F-101.8 F 72-100 18-20 109-144/59-75 96-99 Results - Labs CBC & BMP: 08/21/16 05:32 08/21/16 05:32
[2016-08-21] MEDS: PANTOPRAZOLE 40 MG TABLET PO SCH (08:34)
[2016-08-21] MEDS: INDOMETHACIN SR 75 MG CAPSULE PO SCH (08:34)
[2016-08-21] MEDS: sitaGLIPtin 100 MG TABLET PO SCH (08:35)
--- NOTE | 2016-08-21 12:11 | Gastrointestinal Consult Note ---
Assessment and Plan (1) Abnormal finding on CT scan Status: Acute Assessment and plan: 08/21-history of colon cancer in [address] of abdomen with contrast with findings of edema and thickening to bowel wall of lower rectum. No associated symptoms or complaints related to this. For transfer to specialty for continued care pending further GI plans. Will discuss with Dr. Villegas. Plan and addendum to follow by Dr Villegas. Current Visit: Yes History of Present Illness Chief complaint: Abnormal CT finding History of present illness: Mr. Gale is a 70 year old male who was admitted to the hospital on 08 16 with reports of lower leg edema and pain. Patient has a history of diabetes mellitus , hypertension and gout. He presented to the ER with 1 week history of lower extremity pain and swelling. He has gout on a regular basis and takes allopurinol for this as needed. He was found to have cellulitis and started on IV antibiotics. 3 days ago patient was noted to have a temp of 101 in pain to his right knee. Dr. Robison is evaluated this at present time felt that has a fusion related to inflammatory versus gout process. He had no other new onset symptoms to accompany his fever. Negative cultures noted from his right knee aspiration. CT of abdomen was done with contrast and findings noted of a edematous and thickened bowel wall and lower rectum. Patient has a history of colon cancer with the findings of a cecal mass in 2007. Patient underwent a right hemicolectomy by Dr. Poe at that time. Patient did not require any follow-up oncology care however was monitored regularly at the oncology center. He had a repeat CT of abdomen in 2014 with no significant findings noted. Patient denies any abdominal pain, nausea, or vomiting. He denies any changes in his bowel habits, melena, or hematochezia. Denies any weight loss. Denies any changes in his appetite. His last colonoscopy was in [address] Fay which was reported to be normal. His last EGD was in [address] Villegas in which he had an esophageal stricture which was dilated. Patient has not had a repeat colonoscopy since 2008. WBCs trending down at 12.1. Hemoglobin 11.3. Home Medications Medication Instructions Recorded Confirmed Type Allopurinol [Allopurinol] 300 mg PO DAILY 08/16/16 08/16/16 History Carvedilol [Carvedilol] 6.25 mg PO DAILY 08/16/16 08/16/16 History Lisinopril [Lisinopril] 40 mg PO DAILY 08/16/16 08/16/16 History Metformin HCl [Metformin HCl] 500 mg PO DAILY W/SUPPER 08/16/16 08/16/16 History Potassium Chloride [Klor-Con 8] 8 meq PO BID 08/16/16 08/16/16 History hydroCHLOROthiazide 25 mg PO DAILY 08/16/16 08/16/16 History [Hydrochlorothiazide] sitaGLIPtin [Januvia] 100 mg PO DAILY 08/16/16 08/16/16 History Allergies Allergy/AdvReac Type Severity Reaction Status Date / Time No Known Allergies Allergy Verified 08/16/16 11:37 Medical,Surgical,& Family Hx - Medical History Cardio: History of: Hypertension Endocrine: History of: Diabetes Mellitus (NIDDM) Rheumatology: History of;: Gout Gastrointestinal: History of: Gastrointestinal Cancer (COLON CANCER 2007) - Surgical History Orthopedic Surgeries: Surgical HX of;: Orthopedic Surgery - Family History Family History: Reports;: Family Diabetes - Social History Smoking Status: Never smoker Frequency of Alcohol Use: None Type of Drug Use: None 12 point system: reviewed and no additional remarkable complaints except as stated - Constitutional Constitutional: Present: as per HPI - EENT Eyes: Present: as per HPI Ears: Present: as per HPI Nose, mouth and throat: Present: as per HPI - Cardiovascular Cardiovascular: Present: as per HPI - Respiratory Respiratory: Present: as per HPI - Gastrointestinal Gastrointestinal: Present: as per HPI - Genitourinary Genitourinary: Present: as per HPI - Musculoskeletal Musculoskeletal: Present: as per HPI - Neurological Neurological: Present: as per HPI - Psychiatric Psychiatric: Present: as per HPI - Endocrine Endocrine: Present: as per HPI - Hematologic/Lymphatic Hematologic/Lymphatic: Present: as per HPI Exam - Constitutional Vitals: Period Temp Pulse Resp BP Sys/Pierre Pulse Ox Last 24 Hr 97.9 F-101.8 F 68-100 18-20 109-150/59-87 96-99 General appearance: normal weight, no acute distress - Head Head exam: Present: normal inspection, normocephalic - Eye Eye exam: Present: other (Lids and conjunctivae unremarkable). Absent: scleral icterus - ENT ENT exam: Present: normal exam, normal oropharynx - Neck Neck exam: Present: normal inspection - Respiratory Respiratory exam: Present: clear to auscultation bilaterally. Absent: rales, rhonchi, wheezes - Cardiovascular Cardiovascular exam: Present: regular rate and rhythm. Absent: diastolic murmur , JVD, systolic murmur - GI/Abdominal GI/Abdominal exam: Present: normal bowel sounds, soft. Absent: ascites, distended, mass, organomegaly, tenderness - Extremities Exam Extremities exam: Present: normal inspection, full ROM - Back Exam Back exam: Present: normal inspection - Neurological Exam Neurological exam: Present: alert, oriented X3 - Psychiatric Psychiatric exam: Present: normal affect, normal mood - Skin Skin exam: Present: normal color, warm, dry Results - Labs CBC & BMP: 08/21/16 05:32 08/21/16 05:32 Lab Results: I have reviewed the past 24 hour labs
[2016-08-21] MEDS: SODIUM CHLORIDE 0.9% 1,000 ML IV SCH ×2 (13:06→13:08)
--- NOTE | 2016-08-21 15:45 | Hospitalist Progress Note ---
Assessment and Plan (1) Cellulitis of lower extremity Status: Resolved Assessment and plan: Resolved. Current Visit: Yes (2) Diabetes mellitus Status: Chronic Assessment and plan: Glucose 130. Continue current plan of care. Current Visit: Yes (3) Hypertension Status: Acute Assessment and plan: Continue home medications. Current Visit: Yes (4) Acute on chronic renal failure Status: Resolved Assessment and plan: Resolved Current Visit: Yes (5) Physical debility Status: Acute Assessment and plan: Patient is being seen by PT. He reports walking has improved. Plan for discharge to either Specialty or a swing bed facility. Current Visit: Yes (6) Osteoarthritis Status: Acute Assessment and plan: Dr. Robison is following. Recommended ice and Indocin. Right knee tapped and revealed no infectious process. Current Visit: Yes Hospitalist: Subjective Interval history: Patient was seen and examined today. Lying awake in bed in NAD. GI will perform a colonoscopy in the am. Patient has been started on a clear liquid diet as part of his colon prep. Right knee is still mildly warm to the touch s/p tap. No infectious process found. He reports no acute changes overnight. Will plan for discharge tomorrow after c-scope. Exam - Constitutional Vitals: Period Temp Pulse Resp BP Sys/Pierre Pulse Ox Last 24 Hr 97.9 F-101.8 F 68-100 18-20 109-150/59-87 96-99 Exam: General appearance: overweight, no acute distress - Head Head exam: Present: normocephalic, atraumatic - Eye Eye exam: Present: EOMI. Absent: conjunctival injection, nystagmus Pupils: Present: BHAVANI, normal accommodation - ENT ENT exam: Present: normal exam, normal external ear exam - Neck Neck exam: Present: normal inspection. Absent: lymphadenopathy, tenderness, thyromegaly - Respiratory Respiratory exam: Present: clear to auscultation bilaterally. Absent: rales, rhonchi, wheezes - Cardiovascular Cardiovascular exam: Present: regular rate and rhythm. Absent: carotid bruit, gallop, rubs - GI/Abdominal GI/Abdominal exam: Present: normal bowel sounds. Absent: ascites, distended, mass - Extremities Exam Extremities exam: Present: normal inspection, normal capillary refill. Absent: edema - Back Exam Back exam: Absent: CVA tenderness (L), CVA tenderness (R) - Neurological Exam Neurological exam: Present: alert, oriented X3 - Psychiatric Psychiatric exam: Present: normal affect, normal mood - Skin Skin exam: Present: normal color, warm, dry Results - Labs CBC & BMP: 08/21/16 05:32 08/21/16 05:32 Lab Results: I have reviewed the past 24 hour labs
[2016-08-21] MEDS ORDERED: POLYETHYLENE GLYCOL POWDER 17 GM PACK PO ONE (20:00)
[2016-08-22] MEDS: MEROPENEM 1,000 MG in SODIUM CHLORIDE 0.9% 100 ML IV SCH ×2 (00:29→11:56)
[2016-08-22] MEDS ORDERED: MAGNESIUM CITRATE 300 ML BOTTLE PO ONE ×2 (02:00→06:00)
[2016-08-22 05:47] LABS: Basophils # 0.1 10*3/uL (0.0-0.2); Basophils % 0.5 % (0.0-0.8); Eosinophils # 0.3 10*3/uL (0.0-0.87); Eosinophils % 2.2 % (0.00-10.9); Hematocrit 36.7 VOL% (42.0-52.0); Hemoglobin 12.1 GM/DL (14.0-18.0); Immature Granulocytes % 1.6 %; Immature Granulocytes Absolute 0.21 #; Lymphocytes # 1.4 10*3/uL (1.4-4.0); Lymphocytes % 10.5 % (21.2-54.2); Mean Corpuscular Hemoglobin 29 PG (27-34); Mean Corpuscular Volume 89.1 FL (87-102); Mean Platelet Volume 10.1 FL (9.6-12.0); Monocytes % 7.6 % (1.7-12.7); Neutrophils # 10.4 10*3/uL (1.4-7.4); Neutrophils % 77.6 % (38.7-73.9); Platelet Count 554 T/CUMM (130-400); Red Blood Count 4.12 MC/CUMM (3.8-5.5); Red Cell Distribution Width 12.1 % (9.3-17.3); White Blood Count 13.4 T/CUMM (4-12)
[2016-08-22 06:10] LABS: Calcium 8.5 MG/DL (8.5-10.1); Osmolality,Calculated 279.3 MOS/KG (273-304); Potassium 4.4 MMOL/L (3.5-5.1)
--- NOTE | 2016-08-22 07:20 | Orthopedic Progress Note ---
Orthopedics - Subjective Interval history: Afebrile/ mobilizing in room this morning continues to show steady improvement with respect to decreasing pain and an range of motion improvement right knee today minimal swelling warmth about the knee again at least 60 arc of active motion. Gram-negative geo in enrichment media most likely contaminant. Do not have a problem with p.o. antibiotic if considering discharge. We will continue to observe while inpatient and if was discharged over the weekend would like to see next week for follow-up. Discussed expectations for continued improvement Exam - Constitutional Vitals: Period Temp Pulse Resp BP Sys/Pierre Pulse Ox Last 24 Hr 97.8 F-99.7 F 68-88 20-20 124-150/61-87 96-100 Results - Labs CBC & BMP: 08/22/16 05:00 08/22/16 05:00
--- NOTE | 2016-08-22 08:42 | EKG Report ---
Stationary ECG Study [facility] Test Date: 08/22/2016 8:41:12 AM Pat Name: ANTHONY RAMIREZ Department: Room: 216 Gender: M [employer]uching Machine Operator: ROSANA : 1945 Requested by: Kathryn Amador Order Number: [id number] Reading MD: SILVIO PIMENTEL Intervals [place] Rate: 85 P: 69 AL: 141 QRS: 75 QRSD: 88 T: 18 QT: 335 QTc: 378 Interpretive Statements SINUS RHYTHM WITH OCCASIONAL VENTRICULAR PREMATURE COMPLEXES MODERATE T-WAVE ABNORMALITY, CONSIDER ANTEROLATERAL ISCHEMIA Electronically Signed On 08-25-16 14:40:43 CDT by SILVIO PIMENTEL [email or web address]
[2016-08-22] MEDS: VANCOMYCIN INJ 1,250 MG in SODIUM CHLORIDE 0.9% 250 ML IV SCH (09:42)
[2016-08-22] MEDS: sitaGLIPtin 100 MG TABLET PO SCH (09:43)
[2016-08-22] MEDS: PANTOPRAZOLE 40 MG TABLET PO SCH (09:43)
[2016-08-22] MEDS: INDOMETHACIN SR 75 MG CAPSULE PO SCH (09:43)
[2016-08-22] MEDS: INSULIN LISPRO 100 UNIT/ML SUBCUT SCH ×2 (09:44→12:00)
--- NOTE | 2016-08-22 13:46 | Hospitalist Progress Note ---
Assessment and Plan (1) Cellulitis of lower extremity Status: Resolved Assessment and plan: 1)fever- at first he had cellulitis in RLE, then hot swollen R knee (tap not consisitent with infection, GNR on culture likely contaminant per Dr Robison) and then after sinus/chest/abdomen/ pelvis scanning he has thickened area in colon. Cscope today. Has no colitis type symptoms. Fever now absent for 36 hours. No positive blood cultures. can change to oral antibiotics at discharge. 2)EDSON- resolved. NSAIDS for OA may be contributor, use with caution 3)OA 4)debility 5)resolved orthostatic hypotension 6)dispo- to [facility] swing bed when ready. Current Visit: Yes (2) Diabetes mellitus Status: Chronic Current Visit: Yes (3) Hypertension Status: Acute Current Visit: Yes (4) Acute on chronic renal failure Status: Resolved Current Visit: Yes (5) Edema Status: Resolved Current Visit: Yes Hospitalist: Subjective Interval history: Mr Gale did not rest well because of the bowel prep. He is otherwise feeling ok. No fever in 36 hours. He will have cscope today. GNR in joint culture likely contaminant per Dr Robison, ok for oral antibiotics. If cscope results don't lead to further treatment or testing, then he can go to swing bed on oral antibiotics. Exam - Constitutional Vitals: Period Temp Pulse Resp BP Sys/Pierre Pulse Ox Last 24 Hr 97.6 F-99.7 F 78-96 20-24 124-173/61-82 96-100 General appearance: normal weight, no acute distress - Head Head exam: Present: normocephalic, atraumatic - Eye Eye exam: Present: EOMI. Absent: scleral icterus - Respiratory Respiratory exam: Present: clear to auscultation bilaterally - Cardiovascular Cardiovascular exam: Present: regular rate and rhythm - GI/Abdominal GI/Abdominal exam: Present: normal bowel sounds, soft. Absent: tenderness - Extremities Exam Extremities exam: Absent: edema - Neurological Exam Neurological exam: Present: alert, oriented X3 - Skin Skin exam: Present: warm, dry Results - Labs CBC & BMP: 08/22/16 05:00 08/22/16 05:00 Lab Results: I have reviewed the past 24 hour labs Specialty Discharge - Follow Up or Referrals Follow up with: Parker Robison Jr., MD [Physician] - 08/28/16 8:50 am
--- NOTE | 2016-08-22 14:03 | History and Physical Update ---
History and Physical Update - History and Physical H&P was reviewed, the patient examined and there: are no changes in the patients condition since last H&P was completed. - Physical Exam Mental Status: alert and oriented Heart: regular rate and rhythm Lung: clear to auscultation Abdomen: within normal limits Vitals: within normal limits
--- NOTE | 2016-08-22 14:18 | Operative Note ---
Date of procedure: 08/22/16 Pre-op diagnosis: History of colon cancer, abnormal appearance of colon on CT Procedure: Procedure note: Colonoscopy Physician: Dr. Yo Villegas Brief clinical abstract: Patient is a 70-year-old male with history of colon cancer diagnosed and resected around 10 years ago. He had follow-up colonoscopy a year or 2 after that but has not had this done since. He is admitted with recent fever with cellulitis but has persistent fever of unclear cause. CT abdomen showed questionable thickening in the ascending colon. He denies gross GI bleeding, abdominal pain or weight loss. Endoscopic findings: After informed consent was obtained, the patient was placed in the left lateral decubitus position. Digital rectal exam was performed with no palpable abnormalities felt. Pediatric videocolonoscope was inserted into the rectum and advanced to the ileocolonic anastomosis estimated to be near the mid to distal ascending colon. Anastomosis had normal appearance. The endoscope was withdrawn distally with withdrawal time over 6 minutes duration. On withdrawal vascular pattern throughout the colon appeared normal. Bowel prep was of good quality. No polyps were seen. No diverticuli were noted. The endoscope was withdrawn in the rectum with retroflex view showing no abnormalities. The endoscope was removed and he appeared to tolerate the procedure well. Impression: Normal postsurgical colon Plan: Would repeat colonoscopy in 5 years for cancer surveillance. Anesthesia: MAC Surgeon / Physician: Yao Villegas Estimated blood loss: none Specimens: none sent Condition: stable Disposition: post procedure unit Results - Labs CBC & BMP: 08/22/16 05:00 08/22/16 05:00 Discharge Plan - Discharge Medications No Action Allopurinol [Allopurinol] 300 mg PO DAILY Potassium Chloride [Klor-Con 8] 8 meq PO BID Carvedilol [Carvedilol] 6.25 mg PO DAILY sitaGLIPtin [Januvia] 100 mg PO DAILY hydroCHLOROthiazide [Hydrochlorothiazide] 25 mg PO DAILY Lisinopril [Lisinopril] 40 mg PO DAILY Metformin HCl [Metformin HCl] 500 mg PO DAILY W/SUPPER - Follow Up or Referral Follow Up: Parker Robison Jr., MD [Physician] - 08/28/16 8:50 am - Forms/Instructions
--- NOTE | 2016-08-22 14:21 | Anesthesia ---
Anesthesia Post OP - Post Ansesthetic Evaluation Patient seen in post op: Yes Resp: within normal limits CV: within normal limits Mental: within normal limits Temp: within normal limits [id number]: within normal limits Nausea and Vomiting: within normal limits Pain: within normal limits
[2016-08-22 14:45] VITALS: BP 157/97
--- NOTE | 2016-08-22 16:10 | Discharge Summary ---
Hospital Course - Hospital Course Hospital Course: Mr Gale presented with cellulitis in his right LE. It resolved quickly by exam on IV antibiotics. However he continued to have fever for several days. In pursuit of his fever, he had right knee tap because it was warm and swollen consistent with OA and possible infection. Dr Robison saw him and did the tap. THe fluid analysis was not consistent with infection. There is a as yet unidentified GNR growing in the culture that he suspects is a contaminant. He will see him in his office next week for follow up. He also had CT scan from sinuses/chest/abdomen/pelvis and an area of thickened colon was noted, but no other concerning abnormalities. Dr Walker performed colonoscopy today which was normal. He has had no focal sumptoms other than right LE swelling initially and a pain in his right knee when he stands with effusion. He has been afebrile for nearly 48hours now. His first BCx are negative x 5 days and a repeat is negative for 2 days. Ucx negative also. He will complete a course of antibiotics with oral levaquin. He is being discharged to [facility] for PT/OT before returning home. He will see Dr Robison as above and also his PCP after discharge from swing bed. He should have surveillance cscope [id number]. - Time spent with patient Time with patient DS: Greater than 30 minutes (I spent 35 minutes on coordination of care and discharge planning, talking to the family, medicine reconciliation, documentation) Diagnosis - Discharge Diagnosis (1) Cellulitis of lower extremity Status: Resolved (2) Diabetes mellitus Status: Chronic (3) Hypertension Status: Chronic (4) Acute on chronic renal failure Status: Resolved (5) Edema Status: Resolved Specialty Discharge - Follow Up or Referrals Follow up with: Parker Robison Jr., MD [Physician] - 08/28/16 8:50 am Yao Villegas MD [Physician] - Your, PCP [Other] (after swing bed) Discharge Plan - Discharge Data Disposition: Disch/Xfer to Snf Condition at Discharge: Stable Discharge Diet: diabetic diet, heart healthy Activity: as per physical therapy, other - Discharge Medications New Acetaminophen Tab [Tylenol Tab] 650 mg PO Q4H PRN #0 tablet PRN Reason: Fever, Headache, Mild Pain HYDROcodone/ACETAMIN 5-325 [[place] 5-325] 1 tablet PO Q4H PRN #0 tablet PRN Reason: Pain Mild (1-3) Indomethacin Sr Cap [Indocin SR Cap] 75 mg PO DAILY capsule Levofloxacin Tab [Levaquin Tab] 750 mg PO DAILY #5 tablet Continue Allopurinol 300 mg PO DAILY Potassium Chloride [Klor-Con 8] 8 meq PO BID Carvedilol 6.25 mg PO DAILY sitaGLIPtin [Januvia] 100 mg PO DAILY hydroCHLOROthiazide [Hydrochlorothiazide] 25 mg PO DAILY Lisinopril 40 mg PO DAILY Metformin HCl 500 mg PO DAILY W/SUPPER - Follow Up or Referral Follow Up: Parker Robison Jr., MD [Physician] - 08/28/16 8:50 am - Forms/Instructions Exam - Constitutional Vitals: Period Temp Pulse Resp BP Sys/Pierre Pulse Ox Last 24 Hr 97.6 F-99.7 F 83-96 15-24 136-173/61-97 96-100 General appearance: normal weight, no acute distress - Head Head exam: Present: normocephalic, atraumatic - Eye Eye exam: Present: EOMI. Absent: scleral icterus - Respiratory Respiratory exam: Present: clear to auscultation bilaterally - Cardiovascular Cardiovascular exam: Present: regular rate and rhythm - GI/Abdominal GI/Abdominal exam: Present: normal bowel sounds, soft. Absent: tenderness - Extremities Exam Extremities exam: Absent: edema - Neurological Exam Neurological exam: Present: alert, oriented X3, CN II-XII intact, motor sensory deficit (general debility) - Skin Skin exam: Present: warm, dry Discharge Results Procedures and tests throughout hospitalization: Pending Orders 08/19/16 11:50 Anaerobic Culture Routine Body Fluid Cult and Gram Stain Routine 08/20/16 15:54 Blood Culture Stat Labs on day of discharge: Labs from last 24 hours 08/22/16 08/22/16 08/22/16 15:13 10:42 07:19 WBC RBC Hgb Hct MCV MCH MCHC RDW Plt Count MPV Neut % (Auto) Lymph % (Auto) [place] % (Auto) Eos % (Auto) Baso % (Auto) Neut # (Auto) Lymph # (Auto) [place] # (Auto) Eos # (Auto) Baso # (Auto) Immature Gran % Nucleated RBC % Immature Gran # Nucleated RBCs # Sodium Potassium Chloride Carbon Dioxide Anion Gap BUN Creatinine GFR Calculation BUN/Creatinine Ratio Glucose POC Glucose 106 119 H 160 H Calculated Osmolality Calcium Vancomycin Trough 08/22/16 08/22/16 08/21/16 05:00 05:00 21:01 WBC 13.4 H RBC 4.12 Hgb 12.1 L Hct 36.7 L MCV 89.1 MCH 29 MCHC 33.0 RDW 12.1 Plt Count 554 H D MPV 10.1 Neut % (Auto) 77.6 H Lymph % (Auto) 10.5 L [place] % (Auto) 7.6 Eos % (Auto) 2.2 Baso % (Auto) 0.5 Neut # (Auto) 10.4 H Lymph # (Auto) 1.4 [place] # (Auto) 1.0 H Eos # (Auto) 0.3 Baso # (Auto) 0.1 Immature Gran % 1.6 Nucleated RBC % 0.0 Immature Gran # 0.21 Nucleated RBCs # 0.00 Sodium 141 Potassium 4.4 Chloride 110 H Carbon Dioxide 20 L Anion Gap 15.4 H BUN 8 Creatinine 0.90 GFR Calculation 115 BUN/Creatinine Ratio 8.00 Glucose 125 H POC Glucose 117 H Calculated Osmolality 279.3 Calcium 8.5 Vancomycin Trough 08/21/16 19:36 WBC RBC Hgb Hct MCV MCH MCHC RDW Plt Count MPV Neut % (Auto) Lymph % (Auto) [place] % (Auto) Eos % (Auto) Baso % (Auto) Neut # (Auto) Lymph # (Auto) [place] # (Auto) Eos # (Auto) Baso # (Auto) Immature Gran % Nucleated RBC % Immature Gran # Nucleated RBCs # Sodium Potassium Chloride Carbon Dioxide Anion Gap BUN Creatinine GFR Calculation BUN/Creatinine Ratio Glucose POC Glucose Calculated Osmolality Calcium Vancomycin Trough 11.6 Preliminary micro results at discharge 08/20/16 15:54 Blood Culture - Preliminary Blood No growth at 1 day 08/20/16 16:02 Blood Culture - Preliminary Blood No growth at 1 day 08/19/16 11:50 Body Fluid Culture - Preliminary Knee - Right Gram Negative Rods DS: Provider Date of admission: 08/16/16 16:24 Primary care physician: . No PCP Attending physician on admission: Milagros Rangel MD Consults: 08/16/16 17:59 Consult to Physical Therapy [CONS] Routine Reason for Physical Therapy: Weakness 08/16/16 18:12 Consult to Pharmacy [CONS] Routine Reason for Pharmacy Consult: Adjust Meds Renal Funct Dose/Manage Vancomycin Dose/Manage Antibiotics 08/19/16 09:20 Consult to Physician [CONS] Routine Comment: rightknee pain possible infection Consulting Provider: Parker Robison Jr. Person Notified: [email or web address] Date Notified: 08/19/16 Time Notified: 09:27 08/19/16 09:25 Consult to Case Mgmt/Social Srvs [CONS] Routine Reason for Case Mgmt/Social Srvs: Swingbed/SNF/Jail 08/19/16 10:11 Consult to Pharmacy [CONS] Routine Reason for Pharmacy Consult: Dose/Manage Vancomycin 08/21/16 09:11 Consult to Physician [CONS] Routine Comment: h/o colon ca, now with fever, thickened colon Consulting Provider: Yao Villegas Discharging clinician: Lauern Ortega MD
== END 2016-08-22 16:30 | disposition home or self-care (01) | DRG 603 ==
LOC: N.ED 11:19 → SUATTDRO 16:24 → N.EDINP 16:24 → N.2E 17:36
PROVIDERS: ADMIT Internal Medicine; ATTEND Internal Medicine

== ENCOUNTER 2019-01-20 13:26 | Inpatient (IN) ==
[2019-01-20 15:33] LABS: Basophils # 0.1 10*3/uL (0.0-0.2); Basophils % 0.4 % (0.0-0.8); Hematocrit 32.9 VOL% (42.0-52.0); Immature Granulocytes % 1.3 %; Immature Granulocytes Absolute 0.37 #; Lymphocytes # 1.7 10*3/uL (1.4-4.0); Lymphocytes % 5.8 % (21.2-54.2); Mean Corpuscular HGB Conc 33.4 GM/DL (32-36); Mean Corpuscular Volume 94.8 FL (87-102); Mean Platelet Volume 9.8 FL (9.6-12.0); Monocytes % 10.8 % (1.7-12.7); Neutrophils % 81.7 % (38.7-73.9); Platelet Count 232 T/CUMM (130-400); Red Blood Count 3.47 MC/CUMM (3.8-5.5); Red Cell Distribution Width 13.8 % (9.3-17.3); White Blood Count 29.5 T/CUMM (4-12)
[2019-01-20 15:50] LABS: Albumin 3.2 G/DL (3.4-5.0); Calcium 8.5 MG/DL (8.5-10.1); Total Protein 7.9 G/DL (6.4-8.3)
[2019-01-20 16:21] LABS: Band Neutrophils 5 % (0-10); Lymphocytes 5 % (20-55); Platelet Estimate Normal; Segmented Neutrophils 84 % (50-85); Total Cells Counted 100
[2019-01-20 16:22] LABS: Hypochromasia Slight
[2019-01-20] MEDS ORDERED: DEXTROSE 50% 25 GM/50 ML VIAL IV PRN (16:30)
[2019-01-20] MEDS ORDERED: ACETAMINOPHEN 325 MG TABLET PO PRN ×2 (16:30→17:42)
[2019-01-20] MEDS ORDERED: VANCOMYCIN INJ 1,250 MG in SODIUM CHLORIDE 0.9% 250 ML IV SCH (16:30)
[2019-01-20] MEDS ORDERED: GLUCAGON 1 MG VIAL IM PRN (16:30)
[2019-01-20 17:13] LABS: Apearance,Urine CLOUDY (Clear); Bacteria,Urine Many /HPF (Few); Bilirubin,Urine Negative (Negative); Blood, Urine Moderate mg/dL (Negative); Glucose,Urine (UA) Negative (Negative); Hyaline Casts,Urine 16 /LPF (0-3); Ketones,Urine Negative (Negative); Mucus,Urine Occasional /LPF (Occasional); Nitrite,Urine Negative (Negative); Protein,Urine 30 MG/DL; RBC,Urine 17 /HPF (0-4); Squamous Epithelial Cell,Urine Occasional /HPF (0-10); Urine Color Amber (Yellow); Urine Specific Gravity 1.011 (1.001-1.035); Urine Urobilinogen < 2.0 EU/DL (0.2-1.0); WBC,Urine 788 /HPF (0-6)
[2019-01-20] MEDS ORDERED: MECLIZINE 25 MG TABLET PO PRN (17:48)
[2019-01-20] MEDS: SODIUM CHLORIDE 0.45% 1,000 ML IV SCH (18:21)
[2019-01-20] MEDS: INSULIN REGULAR 100 UNIT/ML SUBCUT SCH ×2 (18:22→20:55)
[2019-01-20] MEDS: PIPERACILLIN/TAZOBACTAM 3,375 MG in SODIUM CHLORIDE 0.9% 100 ML IV SCH (18:22)
[2019-01-20] MEDS: HEPARIN 5,000 UNIT/1 ML VIAL SUBCUT SCH (19:20)
[2019-01-20] MEDS: BRIMONIDINE 0.2% OPH SOLN 5 ML BOTTLE BOTH EYES SCH (20:53)
[2019-01-20] MEDS: LATANOPROST 0.005% OPH SOLN 2.5 ML BOTTLE BOTH EYES SCH (20:53)
[2019-01-20] MEDS: POTASSIUM CHLORIDE 20 MEQ TABLET PO SCH (20:54)
[2019-01-20] MEDS ORDERED: LEVOFLOXACIN INJ 500 MG in PREMIX 1 EACH IV SCH (22:00)
[2019-01-21] MEDS: SODIUM CHLORIDE 0.45% 1,000 ML IV SCH ×3 (04:03→20:34)
[2019-01-21] MEDS: PIPERACILLIN/TAZOBACTAM 3,375 MG in SODIUM CHLORIDE 0.9% 100 ML IV SCH (05:08)
[2019-01-21] MEDS: HEPARIN 5,000 UNIT/1 ML VIAL SUBCUT SCH ×2 (05:09→16:39)
[2019-01-21 06:12] LABS: Basophils # 0.1 10*3/uL (0.0-0.2); Basophils % 0.3 % (0.0-0.8); Eosinophils % 0.1 % (0.00-10.9); Hematocrit 29.9 VOL% (42.0-52.0); Hemoglobin 10.1 GM/DL (14.0-18.0); Immature Granulocytes % 1.2 %; Immature Granulocytes Absolute 0.26 #; Lymphocytes # 1.7 10*3/uL (1.4-4.0); Lymphocytes % 7.8 % (21.2-54.2); Mean Corpuscular HGB Conc 33.8 GM/DL (32-36); Mean Corpuscular Volume 94.6 FL (87-102); Mean Platelet Volume 10.7 FL (9.6-12.0); Monocytes % 8.6 % (1.7-12.7); Platelet Count 225 T/CUMM (130-400); Red Blood Count 3.16 MC/CUMM (3.8-5.5); Red Cell Distribution Width 13.6 % (9.3-17.3); White Blood Count 21.1 T/CUMM (4-12)
[2019-01-21 06:37] LABS: Albumin 2.7 G/DL (3.4-5.0); Bilirubin,Total 1.8 MG/DL (0.2-1.0); Calcium 8.1 MG/DL (8.5-10.1); Osmolality,Calculated 292.4 MOS/KG (273-304); Risk Ratio 6.05; Thyroid Stimulating Hormone 1.22 uIU/ml (0.358-3.74); VLDL CHOLESTEROL 30.6 MG/DL
[2019-01-21 06:40] LABS: Lymphocytes 7 % (20-55); Platelet Estimate Decreased; Segmented Neutrophils 93 % (50-85); Total Cells Counted 100
[2019-01-21 06:41] LABS: Hypochromasia Slight
[2019-01-21 07:23] LABS: Hepatitis B Core IgM Quant 0.18 Index; Hepatitis B Surface Ag Result Negative (Negative); Hepatitis C Virus Ab Result Negative (Negative)
[2019-01-21] MEDS ORDERED: cefTRIAXone 1,000 MG in SYRINGE 1 EACH IV SCH (09:00)
[2019-01-21] MEDS: BRIMONIDINE 0.2% OPH SOLN 5 ML BOTTLE BOTH EYES SCH ×2 (09:04→22:10)
[2019-01-21] MEDS: ATORVASTATIN 40 MG TABLET PO SCH (09:07)
[2019-01-21] MEDS: POTASSIUM CHLORIDE 20 MEQ TABLET PO SCH ×2 (09:07→22:09)
[2019-01-21] MEDS: PANTOPRAZOLE 40 MG TABLET PO SCH (09:07)
[2019-01-21] MEDS: INSULIN REGULAR 100 UNIT/ML SUBCUT SCH ×3 (09:07→17:29)
[2019-01-21] MEDS: ASPIRIN EC 81 MG TABLET PO SCH (09:07)
[2019-01-21] MEDS: rOPINIRole 0.25 MG TABLET PO SCH ×2 (16:39→22:07)
[2019-01-21] MEDS: POTASSIUM CHLORIDE 20 MEQ TABLET PO PRN ×2 (17:29→22:08)
[2019-01-21] MEDS: TAMSULOSIN 0.4 MG CAPSULE PO SCH (22:07)
[2019-01-21] MEDS: LATANOPROST 0.005% OPH SOLN 2.5 ML BOTTLE BOTH EYES SCH (22:10)
[2019-01-22] MEDS: HEPARIN 5,000 UNIT/1 ML VIAL SUBCUT SCH ×3 (00:38→16:17)
[2019-01-22] MEDS: POTASSIUM CHLORIDE 20 MEQ TABLET PO PRN ×2 (00:38→02:46)
[2019-01-22] MEDS: SODIUM CHLORIDE 0.45% 1,000 ML IV SCH ×2 (04:40→19:52)
[2019-01-22 04:58] LABS: Basophils # 0.1 10*3/uL (0.0-0.2); Basophils % 0.5 % (0.0-0.8); Eosinophils # 0.2 10*3/uL (0.0-0.87); Hematocrit 29.2 VOL% (42.0-52.0); Hemoglobin 9.5 GM/DL (14.0-18.0); Immature Granulocytes % 1.2 %; Lymphocytes # 2.1 10*3/uL (1.4-4.0); Lymphocytes % 11.8 % (21.2-54.2); Mean Corpuscular HGB Conc 32.5 GM/DL (32-36); Mean Corpuscular Volume 96.7 FL (87-102); Mean Platelet Volume 10.9 FL (9.6-12.0); Monocytes % 8.3 % (1.7-12.7); Neutrophils % 77.2 % (38.7-73.9); Platelet Count 246 T/CUMM (130-400); Red Blood Count 3.02 MC/CUMM (3.8-5.5); White Blood Count 17.4 T/CUMM (4-12)
[2019-01-22 06:03] LABS: Albumin 2.6 G/DL (3.4-5.0); Bilirubin,Total 0.9 MG/DL (0.2-1.0); Calcium 8.7 MG/DL (8.5-10.1); Osmolality,Calculated 295.7 MOS/KG (273-304); Total Protein 6.8 G/DL (6.4-8.3)
[2019-01-22] MEDS: INSULIN REGULAR 100 UNIT/ML SUBCUT SCH ×5 (06:33→22:05)
[2019-01-22] MEDS: FINASTERIDE 5 MG TABLET PO SCH (09:36)
[2019-01-22] MEDS: BRIMONIDINE 0.2% OPH SOLN 5 ML BOTTLE BOTH EYES SCH ×2 (09:36→22:05)
[2019-01-22] MEDS: cefTRIAXone 2,000 MG in SODIUM CHLORIDE 0.9% 100 ML IV SCH (09:36)
[2019-01-22] MEDS: PANTOPRAZOLE 40 MG TABLET PO SCH (09:37)
[2019-01-22] MEDS: ATORVASTATIN 40 MG TABLET PO SCH (09:37)
[2019-01-22] MEDS: POTASSIUM CHLORIDE 20 MEQ TABLET PO SCH ×2 (09:37→22:04)
[2019-01-22] MEDS: ASPIRIN EC 81 MG TABLET PO SCH (09:37)
[2019-01-22] MEDS: rOPINIRole 0.25 MG TABLET PO SCH ×3 (09:37→22:05)
[2019-01-22] MEDS: TAMSULOSIN 0.4 MG CAPSULE PO SCH (22:04)
[2019-01-22] MEDS: LATANOPROST 0.005% OPH SOLN 2.5 ML BOTTLE BOTH EYES SCH (22:05)
[2019-01-23] MEDS: HEPARIN 5,000 UNIT/1 ML VIAL SUBCUT SCH ×3 (01:32→16:10)
[2019-01-23] MEDS: SODIUM CHLORIDE 0.45% 1,000 ML IV SCH ×2 (04:08→18:41)
[2019-01-23 05:49] LABS: Basophils # 0.1 10*3/uL (0.0-0.2); Basophils % 0.5 % (0.0-0.8); Eosinophils # 0.3 10*3/uL (0.0-0.87); Eosinophils % 2.5 % (0.00-10.9); Hemoglobin 10.4 GM/DL (14.0-18.0); Immature Granulocytes % 1.9 %; Immature Granulocytes Absolute 0.24 #; Lymphocytes # 2.2 10*3/uL (1.4-4.0); Lymphocytes % 17.2 % (21.2-54.2); Mean Corpuscular HGB Conc 32.5 GM/DL (32-36); Mean Corpuscular Volume 97.3 FL (87-102); Mean Platelet Volume 10.6 FL (9.6-12.0); Monocytes % 8.9 % (1.7-12.7); Platelet Count 309 T/CUMM (130-400); Red Blood Count 3.29 MC/CUMM (3.8-5.5); Red Cell Distribution Width 13.8 % (9.3-17.3); White Blood Count 12.9 T/CUMM (4-12)
[2019-01-23 06:09] LABS: Albumin 2.8 G/DL (3.4-5.0); Bilirubin,Total 0.7 MG/DL (0.2-1.0); Calcium 9.1 MG/DL (8.5-10.1); Osmolality,Calculated 288.8 MOS/KG (273-304); Total Protein 7.3 G/DL (6.4-8.3)
[2019-01-23] MEDS: INSULIN REGULAR 100 UNIT/ML SUBCUT SCH ×4 (09:20→21:14)
[2019-01-23] MEDS: ASPIRIN EC 81 MG TABLET PO SCH (09:21)
[2019-01-23] MEDS: rOPINIRole 0.25 MG TABLET PO SCH ×3 (09:21→21:13)
[2019-01-23] MEDS: BRIMONIDINE 0.2% OPH SOLN 5 ML BOTTLE BOTH EYES SCH ×2 (09:22→21:13)
[2019-01-23] MEDS: cefTRIAXone 2,000 MG in SODIUM CHLORIDE 0.9% 100 ML IV SCH (09:22)
[2019-01-23] MEDS: POTASSIUM CHLORIDE 20 MEQ TABLET PO SCH ×2 (09:22→21:13)
[2019-01-23] MEDS: ATORVASTATIN 40 MG TABLET PO SCH (09:22)
[2019-01-23] MEDS: FINASTERIDE 5 MG TABLET PO SCH (09:22)
[2019-01-23] MEDS: PANTOPRAZOLE 40 MG TABLET PO SCH (09:22)
[2019-01-23] MEDS ORDERED: MAGNESIUM SULF RIDER 4 GM in PREMIX 1 EACH IV PRN (10:58)
[2019-01-23] MEDS: MAGNESIUM SULF RIDER 2 GM in PREMIX 1 EACH IV PRN (16:10)
[2019-01-23] MEDS: TAMSULOSIN 0.4 MG CAPSULE PO SCH (21:13)
[2019-01-23] MEDS: LATANOPROST 0.005% OPH SOLN 2.5 ML BOTTLE BOTH EYES SCH (21:14)
[2019-01-24] MEDS: HEPARIN 5,000 UNIT/1 ML VIAL SUBCUT SCH ×2 (01:04→08:35)
[2019-01-24] MEDS: SODIUM CHLORIDE 0.45% 1,000 ML IV SCH ×2 (02:33→12:55)
[2019-01-24] MEDS: INSULIN REGULAR 100 UNIT/ML SUBCUT SCH ×2 (07:16→11:25)
[2019-01-24] MEDS: cefTRIAXone 2,000 MG in SODIUM CHLORIDE 0.9% 100 ML IV SCH (08:25)
[2019-01-24] MEDS: FINASTERIDE 5 MG TABLET PO SCH (08:32)
[2019-01-24] MEDS: rOPINIRole 0.25 MG TABLET PO SCH (08:32)
[2019-01-24] MEDS: ASPIRIN EC 81 MG TABLET PO SCH (08:32)
[2019-01-24] MEDS: ATORVASTATIN 40 MG TABLET PO SCH (08:33)
[2019-01-24] MEDS: POTASSIUM CHLORIDE 20 MEQ TABLET PO SCH (08:33)
[2019-01-24] MEDS: PANTOPRAZOLE 40 MG TABLET PO SCH (08:33)
[2019-01-24] MEDS: BRIMONIDINE 0.2% OPH SOLN 5 ML BOTTLE BOTH EYES SCH (08:35)
[2019-01-24 08:42] LABS: Basophils # 0.1 10*3/uL (0.0-0.2); Basophils % 0.7 % (0.0-0.8); Eosinophils # 0.6 10*3/uL (0.0-0.87); Eosinophils % 5.4 % (0.00-10.9); Hematocrit 33.7 VOL% (42.0-52.0); Hemoglobin 10.8 GM/DL (14.0-18.0); Immature Granulocytes % 2.7 %; Immature Granulocytes Absolute 0.29 #; Lymphocytes # 2.3 10*3/uL (1.4-4.0); Lymphocytes % 21.2 % (21.2-54.2); Mean Corpuscular Volume 97.1 FL (87-102); Mean Platelet Volume 10.8 FL (9.6-12.0); Monocytes % 8.8 % (1.7-12.7); Neutrophils % 61.2 % (38.7-73.9); Platelet Count 388 T/CUMM (130-400); Red Blood Count 3.47 MC/CUMM (3.8-5.5); Red Cell Distribution Width 14.1 % (9.3-17.3); White Blood Count 10.7 T/CUMM (4-12)
[2019-01-24 09:05] LABS: Osmolality,Calculated 288.8 MOS/KG (273-304)
[2019-01-24] MEDS: MAGNESIUM SULF RIDER 2 GM in PREMIX 1 EACH IV PRN (09:14)
[2019-01-24 11:51] VITALS: BP 124/70
== END 2019-01-24 13:33 | disposition home or self-care (01) | DRG 871 ==
LOC: N.ED 13:26 → N.EDINP 13:26 → N.2E 17:58
PROVIDERS: ADMIT Hospitalist; ATTEND Hospitalist

== ENCOUNTER 2019-10-03 00:16 | Inpatient (IN) ==
[2019-10-03 00:58] LABS: Basophils # 0.1 10*3/uL (0.0-0.2); Basophils % 0.3 % (0.0-0.8); Hematocrit 42.9 VOL% (42.0-52.0); Hemoglobin 14.3 GM/DL (14.0-18.0); INR 1.1; Immature Granulocytes Absolute 0.15 #; Lymphocytes # 0.6 10*3/uL (1.4-4.0); Lymphocytes % 4.2 % (21.2-54.2); Mean Corpuscular HGB Conc 33.3 GM/DL (32-36); Mean Corpuscular Volume 94.5 FL (87-102); Monocytes % 2.7 % (1.7-12.7); Neutrophils % 91.8 % (38.7-73.9); PT Patient Result 12.2 SECS (9.8-11.9); Platelet Count 142 T/CUMM (130-400); Red Blood Count 4.54 MC/CUMM (3.8-5.5); Red Cell Distribution Width 13.9 % (9.3-17.3); White Blood Count 15.1 T/CUMM (4-12)
[2019-10-03] MEDS ORDERED: ACETAMINOPHEN 500 MG TABLET PO STA (00:58)
[2019-10-03] MEDS ORDERED: SODIUM CHLORIDE 0.9% 1,000 ML IV STA (00:58)
[2019-10-03 01:09] LABS: Albumin 3.3 G/DL (3.4-5.0); Bilirubin,Total 3.5 MG/DL (0.2-1.0); Calcium 8.8 MG/DL (8.5-10.1); Osmolality,Calculated 284.7 MOS/KG (273-304); Total Protein 7.9 G/DL (6.4-8.3)
[2019-10-03 01:53] LABS: Band Neutrophils 6 % (0-10); Lymphocytes 6 % (20-55); Metamyelocytes 3 %; Myelocytes 1 %; Segmented Neutrophils 83 % (50-85); Total Cells Counted 100
[2019-10-03] MEDS ORDERED: POTASSIUM CHLORIDE 20 MEQ/15 ML UDCUP PO ONE (01:53)
[2019-10-03 01:54] LABS: Hypochromasia Slight; Platelet Estimate Normal
[2019-10-03 03:05] LABS: Troponin I 0.104 NG/ML (0.00-0.045)
[2019-10-03] MEDS ORDERED: PIPERACILLIN/TAZOBACTAM 3,375 MG in SODIUM CHLORIDE 0.9% 100 ML IV STA (03:17)
[2019-10-03] MEDS ORDERED: ENOXAPARIN 30 MG/0.3 ML SYRINGE SUBCUT STA (03:17)
[2019-10-03] MEDS ORDERED: ONDANSETRON 4 MG/2 ML VIAL IV PRN (05:48)
[2019-10-03] MEDS ORDERED: MAGNESIUM SULF RIDER 2 GM in PREMIX 1 EACH IV PRN (05:48)
[2019-10-03] MEDS ORDERED: DOCUSATE SODIUM 100 MG CAPSULE PO PRN (05:48)
[2019-10-03] MEDS ORDERED: GLUCAGON 1 MG VIAL IM PRN (05:48)
[2019-10-03] MEDS ORDERED: MAGNESIUM SULF RIDER 4 GM in PREMIX 1 EACH IV PRN (05:48)
[2019-10-03 05:57] LABS: Basophils # 0.1 10*3/uL (0.0-0.2); Basophils % 0.4 % (0.0-0.8); Hematocrit 37.5 VOL% (42.0-52.0); Hemoglobin 12.3 GM/DL (14.0-18.0); Immature Granulocytes % 0.6 %; Immature Granulocytes Absolute 0.09 #; Lymphocytes # 0.8 10*3/uL (1.4-4.0); Lymphocytes % 5.3 % (21.2-54.2); Mean Corpuscular HGB Conc 32.8 GM/DL (32-36); Mean Corpuscular Volume 94.5 FL (87-102); Mean Platelet Volume 9.7 FL (9.6-12.0); Monocytes % 5.6 % (1.7-12.7); Neutrophils % 88.1 % (38.7-73.9); Platelet Count 142 T/CUMM (130-400); Red Blood Count 3.97 MC/CUMM (3.8-5.5); Red Cell Distribution Width 13.8 % (9.3-17.3); White Blood Count 14.5 T/CUMM (4-12)
[2019-10-03] MEDS ORDERED: DEXTROSE 10% 250 ML BAG IV PRN (06:06)
[2019-10-03] MEDS: SODIUM CHLORIDE 0.9% 1,000 ML IV SCH (06:11)
[2019-10-03 06:15] LABS: Band Neutrophils 5 % (0-10); Hypochromasia 1+; Lymphocytes 6 % (20-55); Segmented Neutrophils 85 % (50-85); Total Cells Counted 100
[2019-10-03] MEDS: INSULIN LISPRO 100 UNIT/ML SUBCUT SCH ×4 (06:42→17:58)
[2019-10-03 06:46] LABS: Albumin 2.7 G/DL (3.4-5.0); Bilirubin,Total 3.3 MG/DL (0.2-1.0); Calcium 8.1 MG/DL (8.5-10.1); Osmolality,Calculated 283.8 MOS/KG (273-304); Total Protein 6.6 G/DL (6.4-8.3)
[2019-10-03] MEDS: ENOXAPARIN 40 MG/0.4 ML SYRINGE SUBCUT SCH (08:41)
[2019-10-03 09:11] LABS: Ferritin 527.1 ng/ml (26-388)
[2019-10-03] MEDS ORDERED: carvediloL 6.25 MG TABLET PO SCH (10:44)
[2019-10-03] MEDS: ACETAMINOPHEN 325 MG TABLET PO PRN (14:00)
[2019-10-03] MEDS: allopurinoL 300 MG TABLET PO SCH (14:00)
[2019-10-03] MEDS: FINASTERIDE 5 MG TABLET PO SCH (14:00)
[2019-10-03] MEDS: BRIMONIDINE 0.2% OPH SOLN 5 ML BOTTLE BOTH EYES SCH ×2 (14:00→21:45)
[2019-10-03] MEDS: hydroCHLOROthiazide 12.5 MG CAPSULE PO SCH (14:00)
[2019-10-03] MEDS: ASPIRIN EC 81 MG TABLET PO SCH (14:00)
[2019-10-03] MEDS: ATORVASTATIN 40 MG TABLET PO SCH (14:00)
[2019-10-03] MEDS: amLODIPine 5 MG TABLET PO SCH (14:40)
[2019-10-03] MEDS: CARBIDOPA/LEVODOPA 25-100 MG TABLET PO SCH ×2 (17:00→21:45)
[2019-10-03] MEDS: rOPINIRole 0.25 MG TABLET PO SCH ×2 (17:00→21:45)
[2019-10-03] MEDS: PIPERACILLIN/TAZOBACTAM 3,375 MG in SODIUM CHLORIDE 0.9% 100 ML IV SCH ×2 (17:57→21:45)
[2019-10-03] MEDS: TAMSULOSIN 0.4 MG CAPSULE PO SCH (21:45)
[2019-10-03] MEDS: LATANOPROST 0.005% OPH SOLN 2.5 ML BOTTLE BOTH EYES SCH (21:45)
[2019-10-03] MEDS: carvediloL 3.125 MG TABLET PO SCH (21:45)
[2019-10-04] MEDS: SODIUM CHLORIDE 0.9% 1,000 ML IV SCH ×5 (01:54→23:15)
[2019-10-04] MEDS: INSULIN LISPRO 100 UNIT/ML SUBCUT SCH ×5 (01:55→23:15)
[2019-10-04] MEDS: PIPERACILLIN/TAZOBACTAM 3,375 MG in SODIUM CHLORIDE 0.9% 100 ML IV SCH ×3 (05:00→21:26)
[2019-10-04] MEDS: rOPINIRole 0.25 MG TABLET PO SCH ×3 (09:02→21:25)
[2019-10-04] MEDS: FINASTERIDE 5 MG TABLET PO SCH (09:02)
[2019-10-04] MEDS: ASPIRIN EC 81 MG TABLET PO SCH (09:02)
[2019-10-04] MEDS: amLODIPine 5 MG TABLET PO SCH (09:03)
[2019-10-04] MEDS: ATORVASTATIN 40 MG TABLET PO SCH (09:03)
[2019-10-04] MEDS: hydroCHLOROthiazide 12.5 MG CAPSULE PO SCH (09:03)
[2019-10-04] MEDS: allopurinoL 300 MG TABLET PO SCH (09:03)
[2019-10-04] MEDS: ENOXAPARIN 40 MG/0.4 ML SYRINGE SUBCUT SCH (09:03)
[2019-10-04] MEDS: carvediloL 3.125 MG TABLET PO SCH ×2 (09:03→21:21)
[2019-10-04] MEDS: CARBIDOPA/LEVODOPA 25-100 MG TABLET PO SCH ×3 (09:03→21:25)
[2019-10-04] MEDS: BRIMONIDINE 0.2% OPH SOLN 5 ML BOTTLE BOTH EYES SCH ×2 (09:04→21:26)
[2019-10-04 09:27] LABS: Calcium 7.4 MG/DL (8.5-10.1); Osmolality,Calculated 290.3 MOS/KG (273-304)
[2019-10-04 12:43] LABS: Basophils % 0.4 % (0.0-0.8); Eosinophils % 0.2 % (0.00-10.9); Hematocrit 36.7 VOL% (42.0-52.0); Hemoglobin 11.3 GM/DL (14.0-18.0); Immature Granulocytes % 0.8 %; Immature Granulocytes Absolute 0.08 #; Lymphocytes # 0.7 10*3/uL (1.4-4.0); Lymphocytes % 7.3 % (21.2-54.2); Mean Corpuscular HGB Conc 30.8 GM/DL (32-36); Mean Corpuscular Volume 98.4 FL (87-102); Mean Platelet Volume 10.8 FL (9.6-12.0); Monocytes % 6.1 % (1.7-12.7); Neutrophils % 85.2 % (38.7-73.9); Platelet Count 108 T/CUMM (130-400); Red Blood Count 3.73 MC/CUMM (3.8-5.5); Red Cell Distribution Width 14.3 % (9.3-17.3); White Blood Count 9.6 T/CUMM (4-12)
[2019-10-04 13:24] LABS: Band Neutrophils 13 % (0-10); Eosinophils 2 % (0-10); Lymphocytes 7 % (20-55); Metamyelocytes 1 %; Myelocytes 1 %; Platelet Estimate Adequate; Segmented Neutrophils 70 % (50-85); Total Cells Counted 100
[2019-10-04 13:25] LABS: Anisocytosis Slight; Macrocytosis Slight
[2019-10-04] MEDS: TAMSULOSIN 0.4 MG CAPSULE PO SCH (21:21)
[2019-10-04] MEDS: LATANOPROST 0.005% OPH SOLN 2.5 ML BOTTLE BOTH EYES SCH (21:26)
[2019-10-05 04:37] LABS: Basophils % 0.4 % (0.0-0.8); Eosinophils # 0.1 10*3/uL (0.0-0.87); Eosinophils % 0.9 % (0.00-10.9); Hemoglobin 11.4 GM/DL (14.0-18.0); Immature Granulocytes % 1.1 %; Immature Granulocytes Absolute 0.11 #; Lymphocytes % 10.1 % (21.2-54.2); Mean Corpuscular HGB Conc 33.5 GM/DL (32-36); Mean Corpuscular Volume 92.1 FL (87-102); Monocytes % 8.6 % (1.7-12.7); Neutrophils % 78.9 % (38.7-73.9); Platelet Count 110 T/CUMM (130-400); Red Blood Count 3.69 MC/CUMM (3.8-5.5); Red Cell Distribution Width 13.9 % (9.3-17.3)
[2019-10-05] MEDS: PIPERACILLIN/TAZOBACTAM 3,375 MG in SODIUM CHLORIDE 0.9% 100 ML IV SCH ×3 (05:00→20:39)
[2019-10-05 05:03] LABS: Band Neutrophils 1 % (0-10); Eosinophils 1 % (0-10); Hypochromasia 1+; Lymphocytes 12 % (20-55); Platelet Estimate Decreased; Segmented Neutrophils 78 % (50-85); Total Cells Counted 100
[2019-10-05 05:26] LABS: Calcium 7.8 MG/DL (8.5-10.1); Osmolality,Calculated 284.5 MOS/KG (273-304)
[2019-10-05] MEDS: SODIUM CHLORIDE 0.9% 1,000 ML IV SCH ×2 (07:09→14:57)
[2019-10-05] MEDS: INSULIN LISPRO 100 UNIT/ML SUBCUT SCH ×4 (07:47→21:00)
[2019-10-05] MEDS: ENOXAPARIN 40 MG/0.4 ML SYRINGE SUBCUT SCH (09:15)
[2019-10-05] MEDS: rOPINIRole 0.25 MG TABLET PO SCH ×3 (09:15→20:44)
[2019-10-05] MEDS: ATORVASTATIN 40 MG TABLET PO SCH (09:15)
[2019-10-05] MEDS: BRIMONIDINE 0.2% OPH SOLN 5 ML BOTTLE BOTH EYES SCH ×2 (09:15→20:40)
[2019-10-05] MEDS: hydroCHLOROthiazide 12.5 MG CAPSULE PO SCH (09:15)
[2019-10-05] MEDS: ASPIRIN EC 81 MG TABLET PO SCH (09:15)
[2019-10-05] MEDS: FINASTERIDE 5 MG TABLET PO SCH (09:15)
[2019-10-05] MEDS: allopurinoL 300 MG TABLET PO SCH (09:15)
[2019-10-05] MEDS: amLODIPine 5 MG TABLET PO SCH (09:15)
[2019-10-05] MEDS: carvediloL 3.125 MG TABLET PO SCH ×2 (09:15→20:39)
[2019-10-05] MEDS: CARBIDOPA/LEVODOPA 25-100 MG TABLET PO SCH ×3 (09:15→20:39)
[2019-10-05] MEDS: TAMSULOSIN 0.4 MG CAPSULE PO SCH ×2 (09:15→20:39)
[2019-10-05 12:16] LABS: Calcium 7.8 MG/DL (8.5-10.1); Osmolality,Calculated 284.7 MOS/KG (273-304)
[2019-10-05] MEDS: ACETAMINOPHEN 325 MG TABLET PO PRN (20:39)
[2019-10-05] MEDS: POTASSIUM CHLORIDE 20 MEQ TABLET PO PRN (20:39)
[2019-10-05] MEDS: LATANOPROST 0.005% OPH SOLN 2.5 ML BOTTLE BOTH EYES SCH (20:40)
[2019-10-06] MEDS: POTASSIUM CHLORIDE 20 MEQ TABLET PO PRN ×3 (00:16→04:18)
[2019-10-06] MEDS: SODIUM CHLORIDE 0.9% 1,000 ML IV SCH ×4 (02:10→22:20)
[2019-10-06] MEDS: PIPERACILLIN/TAZOBACTAM 3,375 MG in SODIUM CHLORIDE 0.9% 100 ML IV SCH ×3 (05:34→22:19)
[2019-10-06 06:37] LABS: Basophils % 0.3 % (0.0-0.8); Eosinophils # 0.2 10*3/uL (0.0-0.87); Eosinophils % 1.8 % (0.00-10.9); Hematocrit 36.1 VOL% (42.0-52.0); Hemoglobin 11.9 GM/DL (14.0-18.0); Immature Granulocytes Absolute 0.09 #; Lymphocytes # 1.5 10*3/uL (1.4-4.0); Lymphocytes % 15.9 % (21.2-54.2); Mean Corpuscular Volume 94.8 FL (87-102); Mean Platelet Volume 11.4 FL (9.6-12.0); Monocytes % 11.1 % (1.7-12.7); Neutrophils % 69.9 % (38.7-73.9); Platelet Count 114 T/CUMM (130-400); Red Blood Count 3.81 MC/CUMM (3.8-5.5); Red Cell Distribution Width 14.1 % (9.3-17.3); White Blood Count 9.3 T/CUMM (4-12)
[2019-10-06 07:06] LABS: Anisocytosis 1+; Band Neutrophils 14 % (0-10); Eosinophils 5 % (0-10); Lymphocytes 15 % (20-55); Platelet Estimate Adequate; Segmented Neutrophils 55 % (50-85); Total Cells Counted 100
[2019-10-06 07:07] LABS: Macrocytosis Slight; Poikilocytosis Slight
[2019-10-06 07:10] LABS: Calcium 8.3 MG/DL (8.5-10.1); Osmolality,Calculated 279.7 MOS/KG (273-304)
[2019-10-06] MEDS ORDERED: LIDOCAINE 1% 20 ML VIAL ONE (07:50)
[2019-10-06] MEDS: BRIMONIDINE 0.2% OPH SOLN 5 ML BOTTLE BOTH EYES SCH ×2 (09:20→21:24)
[2019-10-06] MEDS: ASPIRIN EC 81 MG TABLET PO SCH (09:20)
[2019-10-06] MEDS: rOPINIRole 0.25 MG TABLET PO SCH ×3 (09:20→22:20)
[2019-10-06] MEDS: amLODIPine 5 MG TABLET PO SCH (09:20)
[2019-10-06] MEDS: carvediloL 3.125 MG TABLET PO SCH ×2 (09:20→21:24)
[2019-10-06] MEDS: FINASTERIDE 5 MG TABLET PO SCH (09:20)
[2019-10-06] MEDS: ATORVASTATIN 40 MG TABLET PO SCH (09:20)
[2019-10-06] MEDS: TAMSULOSIN 0.4 MG CAPSULE PO SCH ×2 (09:20→21:24)
[2019-10-06] MEDS: INSULIN LISPRO 100 UNIT/ML SUBCUT SCH ×4 (09:20→21:25)
[2019-10-06] MEDS: CARBIDOPA/LEVODOPA 25-100 MG TABLET PO SCH ×3 (09:20→21:25)
[2019-10-06] MEDS: hydroCHLOROthiazide 12.5 MG CAPSULE PO SCH (09:20)
[2019-10-06] MEDS: allopurinoL 300 MG TABLET PO SCH (09:20)
[2019-10-06] MEDS ORDERED: LORazepam 2 MG/1 ML VIAL IV ONE (11:05)
[2019-10-06] MEDS ORDERED: LORazepam 1 MG TABLET PO PRN (11:05)
[2019-10-06] MEDS ORDERED: TUBERCULIN SKIN TEST 0.1 ML SYRINGE INTRADERM ONE (15:09)
[2019-10-06 15:34] LABS: Apearance,Urine Slightly Hazy (Clear); Bilirubin,Urine Negative (Negative); Blood, Urine Large mg/dL (Negative); Glucose,Urine (UA) 50 mg/dL (Negative); Hyaline Casts,Urine 4 /LPF (0-3); Ketones,Urine 5 mg/dL (Negative); Mucus,Urine Occasional /LPF (Occasional); Nitrite,Urine Negative (Negative); Protein,Urine 100 MG/DL; RBC,Urine 794 /HPF (0-4); Urine Color Amber (Yellow); Urine Specific Gravity 1.013 (1.001-1.035); Urine Urobilinogen < 2.0 EU/DL (0.2-1.0); WBC,Urine 84 /HPF (0-6)
[2019-10-06] MEDS: LATANOPROST 0.005% OPH SOLN 2.5 ML BOTTLE BOTH EYES SCH (21:25)
[2019-10-07] MEDS: ACETAMINOPHEN 325 MG TABLET PO PRN (02:15)
[2019-10-07] MEDS: PIPERACILLIN/TAZOBACTAM 3,375 MG in SODIUM CHLORIDE 0.9% 100 ML IV SCH ×3 (06:00→20:50)
[2019-10-07] MEDS: SODIUM CHLORIDE 0.9% 1,000 ML IV SCH ×2 (06:01→13:25)
[2019-10-07] MEDS: rOPINIRole 0.25 MG TABLET PO SCH ×2 (09:15→15:51)
[2019-10-07] MEDS: TAMSULOSIN 0.4 MG CAPSULE PO SCH ×2 (09:15→20:50)
[2019-10-07] MEDS: ASPIRIN EC 81 MG TABLET PO SCH (09:15)
[2019-10-07] MEDS: carvediloL 3.125 MG TABLET PO SCH ×2 (09:15→20:50)
[2019-10-07] MEDS: hydroCHLOROthiazide 12.5 MG CAPSULE PO SCH (09:15)
[2019-10-07] MEDS: ATORVASTATIN 40 MG TABLET PO SCH (09:15)
[2019-10-07] MEDS: CARBIDOPA/LEVODOPA 25-100 MG TABLET PO SCH ×3 (09:15→20:50)
[2019-10-07] MEDS: allopurinoL 300 MG TABLET PO SCH (09:15)
[2019-10-07] MEDS: FINASTERIDE 5 MG TABLET PO SCH (09:15)
[2019-10-07] MEDS: BRIMONIDINE 0.2% OPH SOLN 5 ML BOTTLE BOTH EYES SCH ×2 (09:15→20:50)
[2019-10-07] MEDS: INSULIN LISPRO 100 UNIT/ML SUBCUT SCH ×4 (09:15→20:50)
[2019-10-07] MEDS: amLODIPine 5 MG TABLET PO SCH (09:15)
[2019-10-07 10:29] LABS: Basophils # 0.1 10*3/uL (0.0-0.2); Basophils % 0.4 % (0.0-0.8); Eosinophils # 0.2 10*3/uL (0.0-0.87); Eosinophils % 1.4 % (0.00-10.9); Hematocrit 36.9 VOL% (42.0-52.0); Hemoglobin 11.9 GM/DL (14.0-18.0); Immature Granulocytes % 1.3 %; Immature Granulocytes Absolute 0.17 #; Lymphocytes # 1.9 10*3/uL (1.4-4.0); Lymphocytes % 14.3 % (21.2-54.2); Mean Corpuscular HGB Conc 32.2 GM/DL (32-36); Mean Corpuscular Volume 95.3 FL (87-102); Mean Platelet Volume 11.7 FL (9.6-12.0); Monocytes % 10.3 % (1.7-12.7); Neutrophils % 72.3 % (38.7-73.9); Platelet Count 132 T/CUMM (130-400); Red Blood Count 3.87 MC/CUMM (3.8-5.5); Red Cell Distribution Width 14.3 % (9.3-17.3); White Blood Count 13.4 T/CUMM (4-12)
[2019-10-07 10:42] LABS: Calcium 7.9 MG/DL (8.5-10.1); Osmolality,Calculated 282.7 MOS/KG (273-304)
[2019-10-07 10:49] LABS: Anisocytosis 1+; Band Neutrophils 10 % (0-10); Eosinophils 3 % (0-10); Lymphocytes 16 % (20-55); Metamyelocytes 1 %; Platelet Estimate Adequate; Segmented Neutrophils 63 % (50-85); Total Cells Counted 100
[2019-10-07 10:50] LABS: Burr Cells Few; Macrocytosis Slight; Poikilocytosis Slight
[2019-10-07] MEDS: rOPINIRole 1 MG TABLET PO SCH (20:50)
[2019-10-07] MEDS: LATANOPROST 0.005% OPH SOLN 2.5 ML BOTTLE BOTH EYES SCH (20:50)
[2019-10-08] MEDS: SODIUM CHLORIDE 0.9% 1,000 ML IV SCH (00:57)
[2019-10-08] MEDS: PIPERACILLIN/TAZOBACTAM 3,375 MG in SODIUM CHLORIDE 0.9% 100 ML IV SCH (05:00)
[2019-10-08 06:35] LABS: Basophils # 0.1 10*3/uL (0.0-0.2); Basophils % 0.5 % (0.0-0.8); Eosinophils # 0.3 10*3/uL (0.0-0.87); Eosinophils % 2.5 % (0.00-10.9); Hematocrit 36.7 VOL% (42.0-52.0); Hemoglobin 11.9 GM/DL (14.0-18.0); Immature Granulocytes % 3.9 %; Lymphocytes # 1.9 10*3/uL (1.4-4.0); Mean Corpuscular HGB Conc 32.4 GM/DL (32-36); Mean Corpuscular Volume 94.8 FL (87-102); Mean Platelet Volume 11.3 FL (9.6-12.0); Monocytes % 9.6 % (1.7-12.7); Neutrophils % 68.5 % (38.7-73.9); Platelet Count 190 T/CUMM (130-400); Red Blood Count 3.87 MC/CUMM (3.8-5.5); White Blood Count 12.9 T/CUMM (4-12)
[2019-10-08 07:35] LABS: Calcium 8.4 MG/DL (8.5-10.1); Osmolality,Calculated 274.8 MOS/KG (273-304)
[2019-10-08] MEDS: INSULIN LISPRO 100 UNIT/ML SUBCUT SCH ×4 (08:31→21:32)
[2019-10-08] MEDS: allopurinoL 300 MG TABLET PO SCH (09:24)
[2019-10-08] MEDS: rOPINIRole 1 MG TABLET PO SCH ×3 (09:24→21:33)
[2019-10-08] MEDS: ASPIRIN EC 81 MG TABLET PO SCH (09:24)
[2019-10-08] MEDS: hydroCHLOROthiazide 12.5 MG CAPSULE PO SCH (09:24)
[2019-10-08] MEDS: CARBIDOPA/LEVODOPA 25-100 MG TABLET PO SCH ×3 (09:24→21:33)
[2019-10-08] MEDS: amLODIPine 5 MG TABLET PO SCH (09:24)
[2019-10-08] MEDS: FINASTERIDE 5 MG TABLET PO SCH (09:24)
[2019-10-08] MEDS: TAMSULOSIN 0.4 MG CAPSULE PO SCH ×2 (09:24→21:33)
[2019-10-08] MEDS: ATORVASTATIN 40 MG TABLET PO SCH (09:25)
[2019-10-08] MEDS: carvediloL 3.125 MG TABLET PO SCH ×2 (09:25→21:33)
[2019-10-08 10:22] LABS: Band Neutrophils 1 % (0-10); Eosinophils 1 % (0-10); Lymphocytes 2 % (20-55); Metamyelocytes 1 %; Segmented Neutrophils 87 % (50-85); Total Cells Counted 100
[2019-10-08 10:23] LABS: Ovalocytes Slight; Schistocytes Slight
[2019-10-08 10:24] LABS: Acanthocytes Few; Platelet Estimate Adequate
[2019-10-08] MEDS: BRIMONIDINE 0.2% OPH SOLN 5 ML BOTTLE BOTH EYES SCH ×2 (12:19→21:32)
[2019-10-08] MEDS: LATANOPROST 0.005% OPH SOLN 2.5 ML BOTTLE BOTH EYES SCH (21:32)
[2019-10-09] MEDS: SODIUM CHLORIDE 0.9% 1,000 ML IV SCH (00:22)
[2019-10-09 06:58] LABS: Basophils # 0.1 10*3/uL (0.0-0.2); Basophils % 0.5 % (0.0-0.8); Eosinophils # 0.4 10*3/uL (0.0-0.87); Eosinophils % 2.9 % (0.00-10.9); Hematocrit 36.8 VOL% (42.0-52.0); Hemoglobin 12.2 GM/DL (14.0-18.0); Immature Granulocytes % 4.1 %; Immature Granulocytes Absolute 0.52 #; Lymphocytes # 2.5 10*3/uL (1.4-4.0); Lymphocytes % 19.5 % (21.2-54.2); Mean Corpuscular HGB Conc 33.2 GM/DL (32-36); Mean Corpuscular Volume 91.3 FL (87-102); Mean Platelet Volume 11.3 FL (9.6-12.0); Monocytes % 8.4 % (1.7-12.7); Neutrophils % 64.6 % (38.7-73.9); Platelet Count 241 T/CUMM (130-400); Red Blood Count 4.03 MC/CUMM (3.8-5.5); Red Cell Distribution Width 13.6 % (9.3-17.3); White Blood Count 12.6 T/CUMM (4-12)
[2019-10-09 07:29] LABS: Albumin 2.4 G/DL (3.4-5.0); Bilirubin,Total 1.3 MG/DL (0.2-1.0); Calcium 8.1 MG/DL (8.5-10.1); Total Protein 6.6 G/DL (6.4-8.3)
[2019-10-09] MEDS: BRIMONIDINE 0.2% OPH SOLN 5 ML BOTTLE BOTH EYES SCH ×2 (08:36→21:59)
[2019-10-09] MEDS: rOPINIRole 1 MG TABLET PO SCH ×3 (08:36→21:59)
[2019-10-09] MEDS: FINASTERIDE 5 MG TABLET PO SCH (08:36)
[2019-10-09] MEDS: ASPIRIN EC 81 MG TABLET PO SCH (08:36)
[2019-10-09] MEDS: INSULIN LISPRO 100 UNIT/ML SUBCUT SCH ×4 (08:36→21:59)
[2019-10-09] MEDS: TAMSULOSIN 0.4 MG CAPSULE PO SCH ×2 (08:36→21:59)
[2019-10-09] MEDS: carvediloL 3.125 MG TABLET PO SCH ×2 (08:36→21:59)
[2019-10-09] MEDS: ATORVASTATIN 40 MG TABLET PO SCH (08:36)
[2019-10-09] MEDS: amLODIPine 5 MG TABLET PO SCH (08:36)
[2019-10-09] MEDS: CARBIDOPA/LEVODOPA 25-100 MG TABLET PO SCH ×3 (08:36→21:59)
[2019-10-09] MEDS: hydroCHLOROthiazide 12.5 MG CAPSULE PO SCH (08:36)
[2019-10-09] MEDS: allopurinoL 300 MG TABLET PO SCH (08:37)
[2019-10-09] MEDS: POTASSIUM CHLORIDE 20 MEQ TABLET PO SCH (10:10)
[2019-10-09 13:01] LABS: Band Neutrophils 1 % (0-10); Lymphocytes 17 % (20-55); Platelet Estimate Normal; Polychromasia Slight; Segmented Neutrophils 80 % (50-85); Total Cells Counted 100
[2019-10-09] MEDS: LATANOPROST 0.005% OPH SOLN 2.5 ML BOTTLE BOTH EYES SCH (21:59)
[2019-10-10 05:37] LABS: Basophils # 0.1 10*3/uL (0.0-0.2); Basophils % 0.6 % (0.0-0.8); Eosinophils # 0.4 10*3/uL (0.0-0.87); Eosinophils % 2.7 % (0.00-10.9); Hematocrit 36.5 VOL% (42.0-52.0); Immature Granulocytes % 4.1 %; Immature Granulocytes Absolute 0.58 #; Lymphocytes # 2.7 10*3/uL (1.4-4.0); Mean Corpuscular HGB Conc 32.9 GM/DL (32-36); Mean Corpuscular Volume 93.8 FL (87-102); Mean Platelet Volume 10.9 FL (9.6-12.0); Monocytes % 6.3 % (1.7-12.7); Neutrophils % 67.3 % (38.7-73.9); Platelet Count 321 T/CUMM (130-400); Red Blood Count 3.89 MC/CUMM (3.8-5.5); Red Cell Distribution Width 13.6 % (9.3-17.3); White Blood Count 14.1 T/CUMM (4-12)
[2019-10-10 06:03] LABS: Band Neutrophils 2 % (0-10); Eosinophils 6 % (0-10); Hypochromasia 1+; Lymphocytes 18 % (20-55); Nucleated Red Blood Cells 1 (0-5); Platelet Estimate Adequate; Segmented Neutrophils 68 % (50-85); Total Cells Counted 100
[2019-10-10 06:26] LABS: Calcium 8.8 MG/DL (8.5-10.1)
[2019-10-10 06:29] LABS: Albumin 2.5 G/DL (3.4-5.0); Bilirubin,Total 2.2 MG/DL (0.2-1.0); Calcium 8.7 MG/DL (8.5-10.1); Osmolality,Calculated 270.1 MOS/KG (273-304); Total Protein 7.1 G/DL (6.4-8.3)
[2019-10-10] MEDS: POTASSIUM CHLORIDE 20 MEQ TABLET PO PRN ×3 (06:48→12:52)
[2019-10-10] MEDS: INSULIN LISPRO 100 UNIT/ML SUBCUT SCH ×4 (07:37→20:42)
[2019-10-10] MEDS: rOPINIRole 1 MG TABLET PO SCH ×3 (08:32→20:38)
[2019-10-10] MEDS: FINASTERIDE 5 MG TABLET PO SCH (08:33)
[2019-10-10] MEDS: POTASSIUM CHLORIDE 20 MEQ TABLET PO SCH (08:33)
[2019-10-10] MEDS: allopurinoL 300 MG TABLET PO SCH (08:33)
[2019-10-10] MEDS: CARBIDOPA/LEVODOPA 25-100 MG TABLET PO SCH ×3 (08:33→20:38)
[2019-10-10] MEDS: carvediloL 3.125 MG TABLET PO SCH ×2 (08:33→20:38)
[2019-10-10] MEDS: hydroCHLOROthiazide 12.5 MG CAPSULE PO SCH (08:33)
[2019-10-10] MEDS: ATORVASTATIN 40 MG TABLET PO SCH (08:33)
[2019-10-10] MEDS: amLODIPine 5 MG TABLET PO SCH (08:33)
[2019-10-10] MEDS: ASPIRIN EC 81 MG TABLET PO SCH (08:33)
[2019-10-10] MEDS: TAMSULOSIN 0.4 MG CAPSULE PO SCH ×2 (08:33→20:38)
[2019-10-10] MEDS: BRIMONIDINE 0.2% OPH SOLN 5 ML BOTTLE BOTH EYES SCH ×2 (08:34→20:40)
[2019-10-10] MEDS: POTASSIUM CHLORIDE RIDER 10 MEQ in PREMIX 1 EACH IV SCH ×4 (15:21→19:37)
[2019-10-10] MEDS: LATANOPROST 0.005% OPH SOLN 2.5 ML BOTTLE BOTH EYES SCH (20:39)
[2019-10-11 09:08] LABS: Basophils # 0.1 10*3/uL (0.0-0.2); Basophils % 0.5 % (0.0-0.8); Eosinophils # 0.3 10*3/uL (0.0-0.87); Eosinophils % 1.8 % (0.00-10.9); Hematocrit 35.9 VOL% (42.0-52.0); Hemoglobin 11.7 GM/DL (14.0-18.0); Immature Granulocytes % 3.1 %; Immature Granulocytes Absolute 0.59 #; Lymphocytes # 2.7 10*3/uL (1.4-4.0); Lymphocytes % 14.5 % (21.2-54.2); Mean Corpuscular HGB Conc 32.6 GM/DL (32-36); Mean Platelet Volume 10.2 FL (9.6-12.0); Monocytes % 5.3 % (1.7-12.7); Neutrophils % 74.8 % (38.7-73.9); Platelet Count 400 T/CUMM (130-400); Red Blood Count 3.82 MC/CUMM (3.8-5.5); Red Cell Distribution Width 13.8 % (9.3-17.3); White Blood Count 18.8 T/CUMM (4-12)
[2019-10-11 09:26] LABS: Calcium 8.4 MG/DL (8.5-10.1); Osmolality,Calculated 275.1 MOS/KG (273-304)
[2019-10-11 10:20] LABS: Band Neutrophils 1 % (0-10); Hypochromasia Slight; Lymphocytes 10 % (20-55); Platelet Estimate Increased; Segmented Neutrophils 84 % (50-85); Total Cells Counted 100
[2019-10-11] MEDS: INSULIN LISPRO 100 UNIT/ML SUBCUT SCH ×4 (11:02→20:40)
[2019-10-11] MEDS: CARBIDOPA/LEVODOPA 25-100 MG TABLET PO SCH ×3 (11:03→20:40)
[2019-10-11] MEDS: allopurinoL 300 MG TABLET PO SCH (11:03)
[2019-10-11] MEDS: ASPIRIN EC 81 MG TABLET PO SCH (11:03)
[2019-10-11] MEDS: ATORVASTATIN 40 MG TABLET PO SCH (11:03)
[2019-10-11] MEDS: hydroCHLOROthiazide 12.5 MG CAPSULE PO SCH (11:03)
[2019-10-11] MEDS: carvediloL 3.125 MG TABLET PO SCH ×2 (11:03→20:40)
[2019-10-11] MEDS: FINASTERIDE 5 MG TABLET PO SCH (11:03)
[2019-10-11] MEDS: rOPINIRole 1 MG TABLET PO SCH ×3 (11:03→20:40)
[2019-10-11] MEDS: amLODIPine 5 MG TABLET PO SCH (11:04)
[2019-10-11] MEDS: BRIMONIDINE 0.2% OPH SOLN 5 ML BOTTLE BOTH EYES SCH ×2 (11:04→20:40)
[2019-10-11] MEDS: TAMSULOSIN 0.4 MG CAPSULE PO SCH ×2 (11:04→20:40)
[2019-10-11] MEDS: POTASSIUM CHLORIDE 20 MEQ TABLET PO SCH (11:37)
[2019-10-11 11:56] LABS: Apearance,Urine Slightly Hazy (Clear); Bacteria,Urine Occasional /HPF (Few); Bilirubin,Urine Negative (Negative); Blood, Urine Large mg/dL (Negative); Glucose,Urine (UA) Negative (Negative); Hyaline Casts,Urine 3 /LPF (0-3); Ketones,Urine Negative (Negative); Mucus,Urine Occasional /LPF (Occasional); Nitrite,Urine Negative (Negative); Protein,Urine 100 MG/DL; RBC,Urine 268 /HPF (0-4); Squamous Epithelial Cell,Urine Occasional /HPF (0-10); Urine Color Yellow (Yellow); Urine Specific Gravity 1.017 (1.001-1.035); Urine Urobilinogen < 2.0 EU/DL (0.2-1.0); WBC,Urine 50 /HPF (0-6)
[2019-10-11] MEDS: LATANOPROST 0.005% OPH SOLN 2.5 ML BOTTLE BOTH EYES SCH (20:41)
[2019-10-12] MEDS: INSULIN LISPRO 100 UNIT/ML SUBCUT SCH ×2 (08:41→13:30)
[2019-10-12 08:54] LABS: Basophils # 0.1 10*3/uL (0.0-0.2); Basophils % 0.7 % (0.0-0.8); Eosinophils # 0.4 10*3/uL (0.0-0.87); Eosinophils % 2.6 % (0.00-10.9); Hematocrit 37.8 VOL% (42.0-52.0); Immature Granulocytes % 2.5 %; Immature Granulocytes Absolute 0.33 #; Lymphocytes # 2.3 10*3/uL (1.4-4.0); Lymphocytes % 17.1 % (21.2-54.2); Mean Corpuscular HGB Conc 31.7 GM/DL (32-36); Mean Corpuscular Volume 95.9 FL (87-102); Monocytes % 6.1 % (1.7-12.7); Platelet Count 453 T/CUMM (130-400); Red Blood Count 3.94 MC/CUMM (3.8-5.5); White Blood Count 13.4 T/CUMM (4-12)
[2019-10-12 09:11] LABS: Calcium 8.8 MG/DL (8.5-10.1)
[2019-10-12] MEDS: allopurinoL 300 MG TABLET PO SCH (09:19)
[2019-10-12] MEDS: FINASTERIDE 5 MG TABLET PO SCH (09:19)
[2019-10-12] MEDS: rOPINIRole 1 MG TABLET PO SCH (09:19)
[2019-10-12] MEDS: hydroCHLOROthiazide 12.5 MG CAPSULE PO SCH (09:19)
[2019-10-12] MEDS: amLODIPine 5 MG TABLET PO SCH (09:19)
[2019-10-12] MEDS: ATORVASTATIN 40 MG TABLET PO SCH (09:19)
[2019-10-12] MEDS: carvediloL 3.125 MG TABLET PO SCH (09:19)
[2019-10-12] MEDS: ASPIRIN EC 81 MG TABLET PO SCH (09:20)
[2019-10-12] MEDS: POTASSIUM CHLORIDE 20 MEQ TABLET PO SCH (09:20)
[2019-10-12] MEDS: TAMSULOSIN 0.4 MG CAPSULE PO SCH (09:20)
[2019-10-12] MEDS: BRIMONIDINE 0.2% OPH SOLN 5 ML BOTTLE BOTH EYES SCH (09:20)
[2019-10-12] MEDS: CARBIDOPA/LEVODOPA 25-100 MG TABLET PO SCH (09:20)
[2019-10-12 11:52] VITALS: BP 113/66
== END 2019-10-12 14:15 | disposition home health service (06) | DRG 872 ==
LOC: EDUNIT# → N.ED 00:16 → SUATTDRO 04:12 → N.EDINP 04:12 → N.TELEN 06:16 → N.2E 10:42 → N.3E 10-07 18:15
PROVIDERS: ADMIT Emergency Medicine; ATTEND Family Medicine

== ENCOUNTER 2020-04-08 14:14 | Inpatient (IN) ==
[2020-04-08] MEDS ORDERED: SODIUM CHLORIDE 0.9% 1,000 ML IV STA ×2 (14:52→16:40)
[2020-04-08 16:20] LABS: Basophils % 0.2 % (0.0-0.8); Hematocrit 34.7 VOL% (42.0-52.0); Hemoglobin 11.4 GM/DL (14.0-18.0); Immature Granulocytes % 0.6 %; Lymphocytes # 0.5 10*3/uL (1.4-4.0); Lymphocytes % 2.8 % (21.2-54.2); Mean Corpuscular HGB Conc 32.9 GM/DL (32-36); Mean Corpuscular Volume 93.5 FL (87-102); Mean Platelet Volume 10.2 FL (9.6-12.0); Monocytes % 6.4 % (1.7-12.7); Platelet Count 306 T/CUMM (130-400); Red Blood Count 3.71 MC/CUMM (3.8-5.5); Red Cell Distribution Width 14.1 % (9.3-17.3); White Blood Count 16.2 T/CUMM (4-12)
[2020-04-08 16:35] LABS: Calcium 9.5 MG/DL (8.5-10.1); Osmolality,Calculated 293.1 MOS/KG (273-304)
[2020-04-08 17:14] LABS: Band Neutrophils 7 % (0-10); Hypochromasia 2+; Lymphocytes 3 % (20-55); Macrocytosis Slight; Segmented Neutrophils 83 % (50-85); Total Cells Counted 100
[2020-04-08 17:15] LABS: Platelet Estimate Normal
[2020-04-08 17:17] LABS: Bilirubin,Urine Negative (Negative); Blood, Urine Small mg/dL (Negative); Glucose,Urine (UA) Negative (Negative); Ketones,Urine Negative (Negative); Nitrite,Urine Negative (Negative); Protein,Urine 100 MG/DL; Urine Appearance CLOUDY (Clear); Urine Color Yellow (Yellow); Urine Specific Gravity 1.011 (1.001-1.035); Urine Urobilinogen < 2.0 EU/DL (0.2-1.0); WBC,Urine 2957 /HPF (0-6)
[2020-04-08] MEDS ORDERED: cefTRIAXone 1,000 MG in SODIUM CHLORIDE 0.9% 100 ML IV STA (18:30)
[2020-04-08] MEDS ORDERED: GLUCAGON 1 MG VIAL IM PRN ×2 (18:39)
[2020-04-08] MEDS ORDERED: DEXTROSE 50% 25 GM/50 ML VIAL IV PRN ×2 (18:39)
[2020-04-08] MEDS ORDERED: DEXTROSE 50% 25 GM/50 ML SYRINGE IV PRN (18:52)
[2020-04-08] MEDS ORDERED: DILTIAZEM 25 MG/5 ML VIAL IV ONE (18:54)
[2020-04-08] MEDS ORDERED: carvediloL 3.125 MG TABLET PO SCH (19:00)
[2020-04-08] MEDS ORDERED: DILTIAZEM 50 MG/10 ML VIAL IV STA (19:05)
[2020-04-08] MEDS ORDERED: ENOXAPARIN 80 MG/0.8 ML SYRINGE SUBCUT SCH (19:30)
[2020-04-08] MEDS ORDERED: ENOXAPARIN 30 MG/0.3 ML SYRINGE SUBCUT SCH (21:00)
[2020-04-08] MEDS: ACETAMINOPHEN 325 MG TABLET PO PRN (21:01)
[2020-04-08] MEDS: INSULIN LISPRO 100 UNIT/ML SUBCUT SCH (21:09)
[2020-04-08] MEDS: SODIUM CHLORIDE 0.9% 1,000 ML IV SCH (21:09)
[2020-04-08] MEDS: ENOXAPARIN 30 MG/0.3 ML SYRINGE SUBCUT SCH (21:11)
[2020-04-08] MEDS: BRIMONIDINE 0.2% OPH SOLN 5 ML BOTTLE BOTH EYES SCH (21:50)
[2020-04-08] MEDS: LATANOPROST 0.005% OPH SOLN 2.5 ML BOTTLE BOTH EYES SCH (21:50)
[2020-04-08] MEDS ORDERED: SODIUM CHLORIDE 0.9% 1,000 ML IV ONE (21:56)
[2020-04-08] MEDS ORDERED: ACETAMINOPHEN 325 MG TABLET PO ONE (21:56)
[2020-04-08] MEDS ORDERED: PHENYLEPHRINE DRIP 40 MG/250 ML PREMIX IV ONE (23:09)
[2020-04-09] MEDS: PHENYLEPHRINE DRIP 40 MG/250 ML PREMIX IV PRN ×2 (00:10→06:51)
[2020-04-09] MEDS ORDERED: SODIUM CHLORIDE 0.9% 1,000 ML IV ONE (00:53)
[2020-04-09 02:06] LABS: Basophils % 0.3 % (0.0-0.8); Hematocrit 26.2 VOL% (42.0-52.0); Hemoglobin 8.6 GM/DL (14.0-18.0); Immature Granulocytes % 1.2 %; Immature Granulocytes Absolute 0.17 #; Lymphocytes % 7.1 % (21.2-54.2); Mean Corpuscular HGB Conc 32.8 GM/DL (32-36); Mean Corpuscular Volume 93.6 FL (87-102); Monocytes % 8.2 % (1.7-12.7); Neutrophils % 83.2 % (38.7-73.9); Platelet Count 233 T/CUMM (130-400); Red Cell Distribution Width 13.9 % (9.3-17.3); White Blood Count 14.7 T/CUMM (4-12)
[2020-04-09 02:29] LABS: Calcium 7.8 MG/DL (8.5-10.1); Osmolality,Calculated 295.1 MOS/KG (273-304); Thyroid Stimulating Hormone 1.19 uIU/ml (0.358-3.74)
[2020-04-09 03:31] LABS: Band Neutrophils 2 % (0-10); Lymphocytes 4 % (20-55); Metamyelocytes 2 %; Platelet Estimate Normal; Segmented Neutrophils 86 % (50-85); Total Cells Counted 100
[2020-04-09] MEDS ORDERED: ALBUMIN 5% 25 GM in PREMIX 1 EACH IV ONE (07:07)
[2020-04-09] MEDS ORDERED: LEVOFLOXACIN INJ 750 MG in PREMIX 1 EACH IV SCH (07:30)
[2020-04-09] MEDS ORDERED: LIDOCAINE 2% TOP JELLY 20 ML VIAL INTRAURETH ONE (08:06)
[2020-04-09] MEDS: SODIUM CHLORIDE 0.9% 1,000 ML IV SCH ×3 (10:07→20:42)
[2020-04-09] MEDS: INSULIN LISPRO 100 UNIT/ML SUBCUT SCH ×4 (10:09→20:38)
[2020-04-09] MEDS: LEVOFLOXACIN INJ 750 MG in PREMIX 1 EACH IV SCH (10:09)
[2020-04-09] MEDS: FINASTERIDE 5 MG TABLET PO SCH (10:13)
[2020-04-09] MEDS: ATORVASTATIN 40 MG TABLET PO SCH (10:13)
[2020-04-09] MEDS: PANTOPRAZOLE 40 MG TABLET PO SCH (10:13)
[2020-04-09] MEDS: allopurinoL 300 MG TABLET PO SCH (10:15)
[2020-04-09] MEDS: BRIMONIDINE 0.2% OPH SOLN 5 ML BOTTLE BOTH EYES SCH ×2 (10:17→22:24)
[2020-04-09] MEDS: ACETAMINOPHEN 325 MG TABLET PO PRN ×2 (15:07→19:50)
[2020-04-09] MEDS: cefTRIAXone 1,000 MG in SYRINGE 1 EACH IV SCH (18:36)
[2020-04-09] MEDS: LATANOPROST 0.005% OPH SOLN 2.5 ML BOTTLE BOTH EYES SCH (18:36)
[2020-04-09] MEDS: ENOXAPARIN 30 MG/0.3 ML SYRINGE SUBCUT SCH (18:36)
[2020-04-09] MEDS: TAMSULOSIN 0.4 MG CAPSULE PO SCH (20:38)
[2020-04-10] MEDS ORDERED: INFLUENZA VIRUS VACCINE 0.5 ML SYRINGE IM ONE (05:00)
[2020-04-10 06:03] LABS: Basophils % 0.4 % (0.0-0.8); Hematocrit 27.8 VOL% (42.0-52.0); Hemoglobin 8.9 GM/DL (14.0-18.0); Immature Granulocytes % 1.5 %; Immature Granulocytes Absolute 0.17 #; Lymphocytes # 0.4 10*3/uL (1.4-4.0); Lymphocytes % 3.8 % (21.2-54.2); Mean Corpuscular Volume 95.5 FL (87-102); Mean Platelet Volume 10.6 FL (9.6-12.0); Monocytes % 4.6 % (1.7-12.7); Neutrophils % 89.7 % (38.7-73.9); Platelet Count 233 T/CUMM (130-400); Red Blood Count 2.91 MC/CUMM (3.8-5.5); Red Cell Distribution Width 14.3 % (9.3-17.3); White Blood Count 11.3 T/CUMM (4-12)
[2020-04-10 06:27] LABS: Calcium 8.3 MG/DL (8.5-10.1); Osmolality,Calculated 309.1 MOS/KG (273-304)
[2020-04-10 06:33] LABS: Band Neutrophils 2 % (0-10); Hypochromasia 1+; Lymphocytes 4 % (20-55); Microcytosis 1+; Platelet Estimate Adequate; Segmented Neutrophils 90 % (50-85); Total Cells Counted 100
[2020-04-10] MEDS: SODIUM CHLORIDE 0.9% 1,000 ML IV SCH (06:35)
[2020-04-10] MEDS: SODIUM CHLORIDE 0.45% 1,000 ML IV SCH ×3 (09:00→20:30)
[2020-04-10] MEDS: INSULIN LISPRO 100 UNIT/ML SUBCUT SCH ×4 (09:00→21:56)
[2020-04-10] MEDS: BRIMONIDINE 0.2% OPH SOLN 5 ML BOTTLE BOTH EYES SCH ×2 (09:34→21:55)
[2020-04-10] MEDS: ATORVASTATIN 40 MG TABLET PO SCH (09:38)
[2020-04-10] MEDS: FINASTERIDE 5 MG TABLET PO SCH (09:38)
[2020-04-10] MEDS: allopurinoL 300 MG TABLET PO SCH (09:39)
[2020-04-10] MEDS: PANTOPRAZOLE 40 MG TABLET PO SCH (09:39)
[2020-04-10] MEDS: ACETAMINOPHEN 325 MG TABLET PO PRN (12:50)
[2020-04-10] MEDS ORDERED: POTASSIUM CHLORIDE 20 MEQ TABLET PO PRN (14:01)
[2020-04-10] MEDS: POTASSIUM CHLORIDE 8 MEQ CAPSULE PO SCH (18:24)
[2020-04-10] MEDS: cefTRIAXone 1,000 MG in SYRINGE 1 EACH IV SCH (18:25)
[2020-04-10] MEDS: ENOXAPARIN 30 MG/0.3 ML SYRINGE SUBCUT SCH (20:08)
[2020-04-10] MEDS: LATANOPROST 0.005% OPH SOLN 2.5 ML BOTTLE BOTH EYES SCH (21:55)
[2020-04-10] MEDS: TAMSULOSIN 0.4 MG CAPSULE PO SCH (21:55)
[2020-04-11] MEDS: ACETAMINOPHEN 325 MG TABLET PO PRN ×2 (00:16→20:54)
[2020-04-11 06:03] LABS: Basophils % 0.2 % (0.0-0.8); Eosinophils % 0.1 % (0.00-10.9); Hematocrit 26.6 VOL% (42.0-52.0); Hemoglobin 8.5 GM/DL (14.0-18.0); Immature Granulocytes % 1.3 %; Immature Granulocytes Absolute 0.12 #; Lymphocytes % 10.2 % (21.2-54.2); Mean Platelet Volume 10.4 FL (9.6-12.0); Monocytes % 6.1 % (1.7-12.7); Neutrophils % 82.1 % (38.7-73.9); Platelet Count 203 T/CUMM (130-400); Red Cell Distribution Width 14.6 % (9.3-17.3); White Blood Count 9.5 T/CUMM (4-12)
[2020-04-11 06:32] LABS: Calcium 8.1 MG/DL (8.5-10.1); Osmolality,Calculated 302.3 MOS/KG (273-304)
[2020-04-11] MEDS: SODIUM CHLORIDE 0.45% 1,000 ML IV SCH ×3 (06:50→19:02)
[2020-04-11 07:17] LABS: Band Neutrophils 3 % (0-10); Lymphocytes 12 % (20-55); Platelet Estimate Normal; Segmented Neutrophils 79 % (50-85); Total Cells Counted 100
[2020-04-11] MEDS: INSULIN LISPRO 100 UNIT/ML SUBCUT SCH ×4 (08:51→20:54)
[2020-04-11] MEDS: LEVOFLOXACIN INJ 750 MG in PREMIX 1 EACH IV SCH (08:52)
[2020-04-11] MEDS: PANTOPRAZOLE 40 MG TABLET PO SCH (08:53)
[2020-04-11] MEDS: ATORVASTATIN 40 MG TABLET PO SCH (08:53)
[2020-04-11] MEDS: POTASSIUM CHLORIDE 8 MEQ CAPSULE PO SCH (08:53)
[2020-04-11] MEDS: allopurinoL 300 MG TABLET PO SCH (08:53)
[2020-04-11] MEDS: FINASTERIDE 5 MG TABLET PO SCH (08:57)
[2020-04-11] MEDS: BRIMONIDINE 0.2% OPH SOLN 5 ML BOTTLE BOTH EYES SCH (12:57)
[2020-04-11] MEDS: cefTRIAXone 2,000 MG in SYRINGE 1 EACH IV SCH (16:29)
[2020-04-11] MEDS: ENOXAPARIN 30 MG/0.3 ML SYRINGE SUBCUT SCH (20:53)
[2020-04-11] MEDS: DOCUSATE SODIUM 100 MG CAPSULE PO SCH (20:54)
[2020-04-11] MEDS: ASCORBIC ACID 500 MG TABLET PO SCH (20:54)
[2020-04-11] MEDS: POLYETHYLENE GLYCOL POWDER 17 GM PACK PO SCH (20:55)
[2020-04-11] MEDS: POTASSIUM CHLORIDE 20 MEQ TABLET PO SCH (20:55)
[2020-04-11] MEDS: TAMSULOSIN 0.4 MG CAPSULE PO SCH (21:40)
[2020-04-12] MEDS: SODIUM CHLORIDE 0.45% 1,000 ML IV SCH ×3 (01:08→23:10)
[2020-04-12] MEDS: BRIMONIDINE 0.2% OPH SOLN 5 ML BOTTLE BOTH EYES SCH ×3 (01:45→20:23)
[2020-04-12] MEDS: LATANOPROST 0.005% OPH SOLN 2.5 ML BOTTLE BOTH EYES SCH ×2 (01:45→20:23)
[2020-04-12 06:07] LABS: Basophils % 0.2 % (0.0-0.8); Eosinophils % 0.3 % (0.00-10.9); Hemoglobin 9.2 GM/DL (14.0-18.0); Immature Granulocytes % 1.3 %; Immature Granulocytes Absolute 0.15 #; Lymphocytes # 1.1 10*3/uL (1.4-4.0); Lymphocytes % 9.3 % (21.2-54.2); Mean Corpuscular HGB Conc 32.9 GM/DL (32-36); Mean Corpuscular Volume 94.3 FL (87-102); Mean Platelet Volume 10.8 FL (9.6-12.0); Neutrophils % 81.9 % (38.7-73.9); Platelet Count 224 T/CUMM (130-400); Red Blood Count 2.97 MC/CUMM (3.8-5.5); Red Cell Distribution Width 14.9 % (9.3-17.3); White Blood Count 11.4 T/CUMM (4-12)
[2020-04-12 06:34] LABS: Anisocytosis 2+; Band Neutrophils 17 % (0-10); Lymphocytes 10 % (20-55); Macrocytosis 1+; Platelet Estimate Normal; Segmented Neutrophils 67 % (50-85); Total Cells Counted 100
[2020-04-12 06:35] LABS: Ovalocytes Few
[2020-04-12 07:23] LABS: Calcium 8.8 MG/DL (8.5-10.1)
[2020-04-12] MEDS: INSULIN LISPRO 100 UNIT/ML SUBCUT SCH ×4 (08:21→21:27)
[2020-04-12 08:47] LABS: Osmolality,Calculated 302.3 MOS/KG (273-304)
[2020-04-12] MEDS ORDERED: ERGOCALCIFEROL 50,000 UNIT CAPSULE PO ONE (09:21)
[2020-04-12] MEDS: POLYETHYLENE GLYCOL POWDER 17 GM PACK PO SCH ×2 (10:17→20:24)
[2020-04-12] MEDS: allopurinoL 100 MG TABLET PO SCH (10:18)
[2020-04-12] MEDS: ASCORBIC ACID 500 MG TABLET PO SCH ×2 (10:18→20:22)
[2020-04-12] MEDS: ATORVASTATIN 40 MG TABLET PO SCH (10:18)
[2020-04-12] MEDS: POTASSIUM CHLORIDE 20 MEQ TABLET PO SCH ×2 (10:19→20:24)
[2020-04-12] MEDS: DOCUSATE SODIUM 100 MG CAPSULE PO SCH ×2 (10:19→20:23)
[2020-04-12] MEDS: PANTOPRAZOLE 40 MG TABLET PO SCH (10:19)
[2020-04-12] MEDS: MULTIVITAMIN (BEROCCA) TABLET PO SCH (10:19)
[2020-04-12] MEDS: FINASTERIDE 5 MG TABLET PO SCH (10:19)
[2020-04-12] MEDS: MAGNESIUM CHLORIDE 64 MG TABLET PO SCH (10:29)
[2020-04-12] MEDS: cefTRIAXone 2,000 MG in SYRINGE 1 EACH IV SCH (13:23)
[2020-04-12] MEDS: TAMSULOSIN 0.4 MG CAPSULE PO SCH (20:22)
[2020-04-12] MEDS: ENOXAPARIN 30 MG/0.3 ML SYRINGE SUBCUT SCH (20:22)
[2020-04-12] MEDS: OMEGA 3 ACID ETHYL ESTERS 1 GM CAPSULE PO SCH (20:22)
[2020-04-13] MEDS: SODIUM CHLORIDE 0.45% 1,000 ML IV SCH ×2 (01:12→14:28)
[2020-04-13 05:48] LABS: Basophils % 0.2 % (0.0-0.8); Eosinophils # 0.2 10*3/uL (0.0-0.87); Eosinophils % 1.7 % (0.00-10.9); Hematocrit 26.1 VOL% (42.0-52.0); Hemoglobin 8.5 GM/DL (14.0-18.0); Immature Granulocytes Absolute 0.25 #; Lymphocytes # 1.6 10*3/uL (1.4-4.0); Lymphocytes % 13.2 % (21.2-54.2); Mean Corpuscular HGB Conc 32.6 GM/DL (32-36); Mean Corpuscular Volume 93.5 FL (87-102); Mean Platelet Volume 10.5 FL (9.6-12.0); Monocytes % 8.5 % (1.7-12.7); Neutrophils % 74.4 % (38.7-73.9); Platelet Count 230 T/CUMM (130-400); Red Blood Count 2.79 MC/CUMM (3.8-5.5); White Blood Count 12.4 T/CUMM (4-12)
[2020-04-13 06:52] LABS: Calcium 8.3 MG/DL (8.5-10.1); Osmolality,Calculated 295.7 MOS/KG (273-304)
[2020-04-13] MEDS: INSULIN LISPRO 100 UNIT/ML SUBCUT SCH ×4 (07:20→21:27)
[2020-04-13] MEDS: BRIMONIDINE 0.2% OPH SOLN 5 ML BOTTLE BOTH EYES SCH ×2 (09:14→20:38)
[2020-04-13] MEDS: MULTIVITAMIN (BEROCCA) TABLET PO SCH (09:14)
[2020-04-13] MEDS: DOCUSATE SODIUM 100 MG CAPSULE PO SCH ×2 (09:14→20:39)
[2020-04-13] MEDS: ATORVASTATIN 40 MG TABLET PO SCH (09:15)
[2020-04-13] MEDS: OMEGA 3 ACID ETHYL ESTERS 1 GM CAPSULE PO SCH ×2 (09:15→20:40)
[2020-04-13] MEDS: POTASSIUM CHLORIDE 20 MEQ TABLET PO SCH ×3 (09:15→20:39)
[2020-04-13] MEDS: POLYETHYLENE GLYCOL POWDER 17 GM PACK PO SCH ×2 (09:15→20:48)
[2020-04-13] MEDS: PANTOPRAZOLE 40 MG TABLET PO SCH (09:16)
[2020-04-13] MEDS: MAGNESIUM CHLORIDE 64 MG TABLET PO SCH (09:16)
[2020-04-13] MEDS: FINASTERIDE 5 MG TABLET PO SCH (09:16)
[2020-04-13] MEDS: ASCORBIC ACID 500 MG TABLET PO SCH ×2 (09:16→20:39)
[2020-04-13] MEDS: allopurinoL 100 MG TABLET PO SCH (09:16)
[2020-04-13] MEDS: CHOLECALCIFEROL 1,000 UNIT TABLET PO SCH (09:16)
[2020-04-13] MEDS: LEVOFLOXACIN INJ 750 MG in PREMIX 1 EACH IV SCH (10:24)
[2020-04-13] MEDS: cefTRIAXone 2,000 MG in SYRINGE 1 EACH IV SCH (14:56)
[2020-04-13] MEDS: LATANOPROST 0.005% OPH SOLN 2.5 ML BOTTLE BOTH EYES SCH (19:11)
[2020-04-13] MEDS: ENOXAPARIN 30 MG/0.3 ML SYRINGE SUBCUT SCH (20:38)
[2020-04-13] MEDS: TAMSULOSIN 0.4 MG CAPSULE PO SCH (20:39)
[2020-04-14] MEDS: SODIUM CHLORIDE 0.45% 1,000 ML IV SCH ×2 (02:24→16:56)
[2020-04-14] MEDS: INSULIN LISPRO 100 UNIT/ML SUBCUT SCH ×4 (07:30→20:33)
[2020-04-14] MEDS: DOCUSATE SODIUM 100 MG CAPSULE PO SCH ×2 (09:59→20:18)
[2020-04-14] MEDS: MULTIVITAMIN (BEROCCA) TABLET PO SCH (09:59)
[2020-04-14] MEDS: ATORVASTATIN 40 MG TABLET PO SCH (10:00)
[2020-04-14] MEDS: PANTOPRAZOLE 40 MG TABLET PO SCH (10:00)
[2020-04-14] MEDS: FINASTERIDE 5 MG TABLET PO SCH (10:00)
[2020-04-14] MEDS: POTASSIUM CHLORIDE 20 MEQ TABLET PO SCH ×3 (10:00→20:18)
[2020-04-14] MEDS: OMEGA 3 ACID ETHYL ESTERS 1 GM CAPSULE PO SCH ×2 (10:00→20:17)
[2020-04-14] MEDS: POLYETHYLENE GLYCOL POWDER 17 GM PACK PO SCH ×2 (10:00→20:23)
[2020-04-14] MEDS: allopurinoL 100 MG TABLET PO SCH (10:01)
[2020-04-14] MEDS: ASCORBIC ACID 500 MG TABLET PO SCH ×2 (10:01→20:18)
[2020-04-14] MEDS: CHOLECALCIFEROL 1,000 UNIT TABLET PO SCH (10:01)
[2020-04-14] MEDS: MAGNESIUM CHLORIDE 64 MG TABLET PO SCH (10:01)
[2020-04-14] MEDS: BRIMONIDINE 0.2% OPH SOLN 5 ML BOTTLE BOTH EYES SCH ×2 (10:05→21:41)
[2020-04-14 11:32] LABS: Basophils % 0.2 % (0.0-0.8); Eosinophils # 0.2 10*3/uL (0.0-0.87); Eosinophils % 1.2 % (0.00-10.9); Hematocrit 25.8 VOL% (42.0-52.0); Hemoglobin 8.4 GM/DL (14.0-18.0); Immature Granulocytes % 3.6 %; Immature Granulocytes Absolute 0.59 #; Lymphocytes # 1.4 10*3/uL (1.4-4.0); Lymphocytes % 8.3 % (21.2-54.2); Mean Corpuscular HGB Conc 32.6 GM/DL (32-36); Mean Corpuscular Volume 94.2 FL (87-102); Mean Platelet Volume 10.8 FL (9.6-12.0); Monocytes % 6.6 % (1.7-12.7); Neutrophils % 80.1 % (38.7-73.9); Platelet Count 312 T/CUMM (130-400); Red Blood Count 2.74 MC/CUMM (3.8-5.5); White Blood Count 16.5 T/CUMM (4-12)
[2020-04-14 11:51] LABS: Eosinophils 1 % (0-10); Hypochromasia 1+; Lymphocytes 7 % (20-55); Microcytosis Slight; Platelet Estimate Adequate; Segmented Neutrophils 87 % (50-85); Total Cells Counted 100
[2020-04-14 12:04] LABS: Calcium 8.5 MG/DL (8.5-10.1); Osmolality,Calculated 289.3 MOS/KG (273-304)
[2020-04-14] MEDS: cefTRIAXone 2,000 MG in SYRINGE 1 EACH IV SCH (14:32)
[2020-04-14] MEDS: LATANOPROST 0.005% OPH SOLN 2.5 ML BOTTLE BOTH EYES SCH (18:31)
[2020-04-14] MEDS: ENOXAPARIN 30 MG/0.3 ML SYRINGE SUBCUT SCH (20:17)
[2020-04-14] MEDS: TAMSULOSIN 0.4 MG CAPSULE PO SCH (20:18)
[2020-04-15] MEDS: SODIUM CHLORIDE 0.45% 1,000 ML IV SCH ×2 (03:51→18:47)
[2020-04-15 05:15] LABS: Basophils # 0.1 10*3/uL (0.0-0.2); Basophils % 0.4 % (0.0-0.8); Eosinophils # 0.2 10*3/uL (0.0-0.87); Eosinophils % 1.4 % (0.00-10.9); Hemoglobin 8.9 GM/DL (14.0-18.0); Immature Granulocytes % 4.2 %; Lymphocytes # 1.9 10*3/uL (1.4-4.0); Lymphocytes % 11.2 % (21.2-54.2); Mean Corpuscular HGB Conc 31.8 GM/DL (32-36); Mean Corpuscular Volume 96.9 FL (87-102); Mean Platelet Volume 10.9 FL (9.6-12.0); Monocytes % 5.5 % (1.7-12.7); Neutrophils % 77.3 % (38.7-73.9); Platelet Count 363 T/CUMM (130-400); Red Blood Count 2.89 MC/CUMM (3.8-5.5); Red Cell Distribution Width 14.9 % (9.3-17.3); White Blood Count 16.8 T/CUMM (4-12)
[2020-04-15 05:26] LABS: Calcium 8.6 MG/DL (8.5-10.1); Osmolality,Calculated 291.8 MOS/KG (273-304)
[2020-04-15 05:40] LABS: Band Neutrophils 1 % (0-10); Eosinophils 1 % (0-10); Hypochromasia 1+; Lymphocytes 9 % (20-55); Microcytosis 1+; Platelet Estimate Adequate; Segmented Neutrophils 86 % (50-85); Total Cells Counted 100
[2020-04-15] MEDS: INSULIN LISPRO 100 UNIT/ML SUBCUT SCH ×3 (08:46→21:00)
[2020-04-15] MEDS: LEVOFLOXACIN INJ 750 MG in PREMIX 1 EACH IV SCH (10:59)
[2020-04-15] MEDS: BRIMONIDINE 0.2% OPH SOLN 5 ML BOTTLE BOTH EYES SCH ×2 (11:00→21:42)
[2020-04-15] MEDS: POLYETHYLENE GLYCOL POWDER 17 GM PACK PO SCH ×2 (11:01→21:40)
[2020-04-15] MEDS: ATORVASTATIN 40 MG TABLET PO SCH (11:01)
[2020-04-15] MEDS: ASCORBIC ACID 500 MG TABLET PO SCH ×2 (11:02→21:30)
[2020-04-15] MEDS: MAGNESIUM CHLORIDE 64 MG TABLET PO SCH (11:02)
[2020-04-15] MEDS: PANTOPRAZOLE 40 MG TABLET PO SCH (11:02)
[2020-04-15] MEDS: FINASTERIDE 5 MG TABLET PO SCH (11:02)
[2020-04-15] MEDS: MULTIVITAMIN (BEROCCA) TABLET PO SCH (11:02)
[2020-04-15] MEDS: allopurinoL 100 MG TABLET PO SCH (11:03)
[2020-04-15] MEDS: DOCUSATE SODIUM 100 MG CAPSULE PO SCH ×2 (11:03→21:30)
[2020-04-15] MEDS: OMEGA 3 ACID ETHYL ESTERS 1 GM CAPSULE PO SCH ×2 (11:09→21:30)
[2020-04-15] MEDS: POTASSIUM CHLORIDE 20 MEQ TABLET PO SCH ×3 (11:11→21:30)
[2020-04-15] MEDS: cefTRIAXone 2,000 MG in SYRINGE 1 EACH IV SCH (17:15)
[2020-04-15] MEDS: ENOXAPARIN 30 MG/0.3 ML SYRINGE SUBCUT SCH (21:29)
[2020-04-15] MEDS: CYPROHEPTADINE 4 MG TABLET PO SCH (21:30)
[2020-04-15] MEDS: TAMSULOSIN 0.4 MG CAPSULE PO SCH (21:30)
[2020-04-15] MEDS: LATANOPROST 0.005% OPH SOLN 2.5 ML BOTTLE BOTH EYES SCH (21:42)
[2020-04-16] MEDS: SODIUM CHLORIDE 0.45% 1,000 ML IV SCH ×3 (02:16→15:45)
[2020-04-16 04:51] LABS: Basophils # 0.1 10*3/uL (0.0-0.2); Basophils % 0.4 % (0.0-0.8); Eosinophils # 0.2 10*3/uL (0.0-0.87); Eosinophils % 1.3 % (0.00-10.9); Hematocrit 26.9 VOL% (42.0-52.0); Hemoglobin 8.6 GM/DL (14.0-18.0); Immature Granulocytes % 4.5 %; Lymphocytes # 2.2 10*3/uL (1.4-4.0); Lymphocytes % 12.2 % (21.2-54.2); Mean Corpuscular Volume 95.4 FL (87-102); Mean Platelet Volume 10.4 FL (9.6-12.0); Monocytes % 5.5 % (1.7-12.7); Neutrophils % 76.1 % (38.7-73.9); Platelet Count 420 T/CUMM (130-400); Red Blood Count 2.82 MC/CUMM (3.8-5.5); Red Cell Distribution Width 14.7 % (9.3-17.3); White Blood Count 17.9 T/CUMM (4-12)
[2020-04-16 05:07] LABS: Calcium 8.4 MG/DL (8.5-10.1); Osmolality,Calculated 284.3 MOS/KG (273-304)
[2020-04-16 05:12] LABS: Eosinophils 2 % (0-10); Hypochromasia 2+; Lymphocytes 12 % (20-55); Microcytosis 1+; Platelet Estimate Adequate; Segmented Neutrophils 82 % (50-85); Total Cells Counted 100
[2020-04-16] MEDS: CHOLECALCIFEROL 1,000 UNIT TABLET PO SCH (10:55)
[2020-04-16] MEDS: CYPROHEPTADINE 4 MG TABLET PO SCH ×2 (11:00→21:22)
[2020-04-16] MEDS: MULTIVITAMIN (BEROCCA) TABLET PO SCH (11:00)
[2020-04-16] MEDS: FINASTERIDE 5 MG TABLET PO SCH (11:00)
[2020-04-16] MEDS: POTASSIUM CHLORIDE 20 MEQ TABLET PO SCH ×3 (11:00→21:21)
[2020-04-16] MEDS: DOCUSATE SODIUM 100 MG CAPSULE PO SCH ×2 (11:00→21:21)
[2020-04-16] MEDS: OMEGA 3 ACID ETHYL ESTERS 1 GM CAPSULE PO SCH ×2 (11:00→21:22)
[2020-04-16] MEDS: BRIMONIDINE 0.2% OPH SOLN 5 ML BOTTLE BOTH EYES SCH ×2 (11:00→21:21)
[2020-04-16] MEDS: ATORVASTATIN 40 MG TABLET PO SCH (11:01)
[2020-04-16] MEDS: POLYETHYLENE GLYCOL POWDER 17 GM PACK PO SCH ×2 (11:01→21:21)
[2020-04-16] MEDS: allopurinoL 100 MG TABLET PO SCH (11:01)
[2020-04-16] MEDS: MAGNESIUM CHLORIDE 64 MG TABLET PO SCH (11:01)
[2020-04-16] MEDS: ASCORBIC ACID 500 MG TABLET PO SCH ×2 (11:01→21:21)
[2020-04-16] MEDS: PANTOPRAZOLE 40 MG TABLET PO SCH (11:01)
[2020-04-16] MEDS: INSULIN LISPRO 100 UNIT/ML SUBCUT SCH ×5 (11:02→21:23)
[2020-04-16] MEDS: cefTRIAXone 2,000 MG in SYRINGE 1 EACH IV SCH (15:45)
[2020-04-16] MEDS: LATANOPROST 0.005% OPH SOLN 2.5 ML BOTTLE BOTH EYES SCH (18:47)
[2020-04-16] MEDS: ENOXAPARIN 30 MG/0.3 ML SYRINGE SUBCUT SCH (21:21)
[2020-04-16] MEDS: TAMSULOSIN 0.4 MG CAPSULE PO SCH (21:21)
[2020-04-17 05:30] LABS: Basophils # 0.1 10*3/uL (0.0-0.2); Basophils % 0.5 % (0.0-0.8); Eosinophils # 0.2 10*3/uL (0.0-0.87); Eosinophils % 1.4 % (0.00-10.9); Hematocrit 29.8 VOL% (42.0-52.0); Hemoglobin 9.1 GM/DL (14.0-18.0); Immature Granulocytes Absolute 0.82 #; Lymphocytes # 2.3 10*3/uL (1.4-4.0); Mean Corpuscular HGB Conc 30.5 GM/DL (32-36); Mean Corpuscular Volume 100.3 FL (87-102); Mean Platelet Volume 10.6 FL (9.6-12.0); Monocytes % 5.8 % (1.7-12.7); Neutrophils % 73.3 % (38.7-73.9); Platelet Count 467 T/CUMM (130-400); Red Blood Count 2.97 MC/CUMM (3.8-5.5); Red Cell Distribution Width 15.1 % (9.3-17.3); White Blood Count 16.5 T/CUMM (4-12)
[2020-04-17 05:47] LABS: Band Neutrophils 1 % (0-10); Eosinophils 1 % (0-10); Lymphocytes 21 % (20-55); Myelocytes 2 %; Platelet Estimate Increased; Segmented Neutrophils 73 % (50-85); Total Cells Counted 100
[2020-04-17 05:48] LABS: Hypochromasia Slight; Macrocytosis Slight
[2020-04-17 07:21] LABS: Calcium 8.7 MG/DL (8.5-10.1); Osmolality,Calculated 285.1 MOS/KG (273-304)
[2020-04-17] MEDS: INSULIN LISPRO 100 UNIT/ML SUBCUT SCH ×5 (10:38→22:15)
[2020-04-17] MEDS: LEVOFLOXACIN INJ 750 MG in PREMIX 1 EACH IV SCH (10:39)
[2020-04-17] MEDS: allopurinoL 100 MG TABLET PO SCH (10:40)
[2020-04-17] MEDS: POLYETHYLENE GLYCOL POWDER 17 GM PACK PO SCH ×2 (10:40→21:28)
[2020-04-17] MEDS: ASCORBIC ACID 500 MG TABLET PO SCH ×2 (10:40→21:27)
[2020-04-17] MEDS: FINASTERIDE 5 MG TABLET PO SCH (10:40)
[2020-04-17] MEDS: MAGNESIUM CHLORIDE 64 MG TABLET PO SCH (10:41)
[2020-04-17] MEDS: MULTIVITAMIN (BEROCCA) TABLET PO SCH (10:41)
[2020-04-17] MEDS: OMEGA 3 ACID ETHYL ESTERS 1 GM CAPSULE PO SCH ×2 (10:41→21:27)
[2020-04-17] MEDS: CYPROHEPTADINE 4 MG TABLET PO SCH ×2 (10:41→21:28)
[2020-04-17] MEDS: DOCUSATE SODIUM 100 MG CAPSULE PO SCH ×2 (10:41→21:28)
[2020-04-17] MEDS: PANTOPRAZOLE 40 MG TABLET PO SCH (10:41)
[2020-04-17] MEDS: ATORVASTATIN 40 MG TABLET PO SCH (10:41)
[2020-04-17] MEDS: POTASSIUM CHLORIDE 20 MEQ TABLET PO SCH ×3 (10:41→21:27)
[2020-04-17] MEDS: CHOLECALCIFEROL 1,000 UNIT TABLET PO SCH (10:43)
[2020-04-17] MEDS: SODIUM CHLORIDE 0.45% 1,000 ML IV SCH (10:44)
[2020-04-17] MEDS: BRIMONIDINE 0.2% OPH SOLN 5 ML BOTTLE BOTH EYES SCH ×2 (10:50→21:28)
[2020-04-17] MEDS: cefTRIAXone 2,000 MG in SYRINGE 1 EACH IV SCH (15:02)
[2020-04-17] MEDS: LATANOPROST 0.005% OPH SOLN 2.5 ML BOTTLE BOTH EYES SCH (18:37)
[2020-04-17] MEDS: ENOXAPARIN 30 MG/0.3 ML SYRINGE SUBCUT SCH (18:37)
[2020-04-17] MEDS: TAMSULOSIN 0.4 MG CAPSULE PO SCH (21:27)
[2020-04-18 08:05] LABS: Basophils # 0.1 10*3/uL (0.0-0.2); Basophils % 0.3 % (0.0-0.8); Eosinophils # 0.3 10*3/uL (0.0-0.87); Eosinophils % 1.5 % (0.00-10.9); Hematocrit 25.1 VOL% (42.0-52.0); Immature Granulocytes % 5.1 %; Immature Granulocytes Absolute 0.89 #; Lymphocytes # 2.1 10*3/uL (1.4-4.0); Lymphocytes % 11.7 % (21.2-54.2); Mean Corpuscular HGB Conc 31.9 GM/DL (32-36); Mean Corpuscular Volume 96.5 FL (87-102); Mean Platelet Volume 10.1 FL (9.6-12.0); Neutrophils % 74.4 % (38.7-73.9); Platelet Count 558 T/CUMM (130-400); Red Cell Distribution Width 14.9 % (9.3-17.3); White Blood Count 17.6 T/CUMM (4-12)
[2020-04-18 08:22] LABS: Calcium 8.7 MG/DL (8.5-10.1); Osmolality,Calculated 282.4 MOS/KG (273-304)
[2020-04-18 08:24] LABS: Band Neutrophils 1 % (0-10); Eosinophils 1 % (0-10); Hypochromasia 1+; Lymphocytes 14 % (20-55); Microcytosis 1+; Ovalocytes Slight; Platelet Estimate Adequate; Segmented Neutrophils 76 % (50-85); Total Cells Counted 100
[2020-04-18] MEDS: FINASTERIDE 5 MG TABLET PO SCH (08:59)
[2020-04-18] MEDS: POTASSIUM CHLORIDE 20 MEQ TABLET PO SCH ×3 (08:59→20:51)
[2020-04-18] MEDS: SODIUM CHLORIDE 0.45% 1,000 ML IV SCH ×2 (08:59→10:35)
[2020-04-18] MEDS: CHOLECALCIFEROL 1,000 UNIT TABLET PO SCH (08:59)
[2020-04-18] MEDS: DOCUSATE SODIUM 100 MG CAPSULE PO SCH ×2 (08:59→20:51)
[2020-04-18] MEDS: LEVOFLOXACIN INJ 750 MG in PREMIX 1 EACH IV SCH (08:59)
[2020-04-18] MEDS: POLYETHYLENE GLYCOL POWDER 17 GM PACK PO SCH ×2 (08:59→20:52)
[2020-04-18] MEDS: OMEGA 3 ACID ETHYL ESTERS 1 GM CAPSULE PO SCH ×2 (08:59→20:51)
[2020-04-18] MEDS: CYPROHEPTADINE 4 MG TABLET PO SCH ×2 (09:00→20:51)
[2020-04-18] MEDS: PANTOPRAZOLE 40 MG TABLET PO SCH (09:00)
[2020-04-18] MEDS: BRIMONIDINE 0.2% OPH SOLN 5 ML BOTTLE BOTH EYES SCH ×2 (09:00→21:52)
[2020-04-18] MEDS: MAGNESIUM CHLORIDE 64 MG TABLET PO SCH (09:00)
[2020-04-18] MEDS: ASCORBIC ACID 500 MG TABLET PO SCH ×2 (09:00→20:51)
[2020-04-18] MEDS: MULTIVITAMIN (BEROCCA) TABLET PO SCH (09:00)
[2020-04-18] MEDS: allopurinoL 100 MG TABLET PO SCH (09:00)
[2020-04-18] MEDS: ATORVASTATIN 40 MG TABLET PO SCH (09:00)
[2020-04-18] MEDS: INSULIN LISPRO 100 UNIT/ML SUBCUT SCH ×4 (10:34→21:52)
[2020-04-18] MEDS: LATANOPROST 0.005% OPH SOLN 2.5 ML BOTTLE BOTH EYES SCH (18:25)
[2020-04-18] MEDS: TAMSULOSIN 0.4 MG CAPSULE PO SCH (20:51)
[2020-04-18] MEDS: ENOXAPARIN 30 MG/0.3 ML SYRINGE SUBCUT SCH (20:52)
[2020-04-19 06:21] LABS: Basophils # 0.1 10*3/uL (0.0-0.2); Basophils % 0.6 % (0.0-0.8); Eosinophils # 0.2 10*3/uL (0.0-0.87); Eosinophils % 1.4 % (0.00-10.9); Hematocrit 26.4 VOL% (42.0-52.0); Hemoglobin 8.4 GM/DL (14.0-18.0); Immature Granulocytes % 5.7 %; Immature Granulocytes Absolute 0.87 #; Lymphocytes # 2.2 10*3/uL (1.4-4.0); Lymphocytes % 14.3 % (21.2-54.2); Mean Corpuscular HGB Conc 31.8 GM/DL (32-36); Mean Corpuscular Volume 96.7 FL (87-102); Mean Platelet Volume 10.1 FL (9.6-12.0); Monocytes % 7.2 % (1.7-12.7); Neutrophils % 70.8 % (38.7-73.9); Platelet Count 569 T/CUMM (130-400); Red Blood Count 2.73 MC/CUMM (3.8-5.5); Red Cell Distribution Width 14.7 % (9.3-17.3); White Blood Count 15.2 T/CUMM (4-12)
[2020-04-19] MEDS: SODIUM CHLORIDE 0.45% 1,000 ML IV SCH ×3 (06:35→20:31)
[2020-04-19 06:45] LABS: Calcium 8.9 MG/DL (8.5-10.1); Osmolality,Calculated 278.5 MOS/KG (273-304)
[2020-04-19 06:51] LABS: Band Neutrophils 1 % (0-10); Eosinophils 1 % (0-10); Hypochromasia 2+; Lymphocytes 12 % (20-55); Microcytosis 1+; Platelet Estimate Adequate; Segmented Neutrophils 81 % (50-85); Total Cells Counted 100
[2020-04-19] MEDS: INSULIN LISPRO 100 UNIT/ML SUBCUT SCH ×4 (08:25→22:46)
[2020-04-19] MEDS: PANTOPRAZOLE 40 MG TABLET PO SCH (09:17)
[2020-04-19] MEDS: DOCUSATE SODIUM 100 MG CAPSULE PO SCH ×2 (09:17→20:23)
[2020-04-19] MEDS: POTASSIUM CHLORIDE 20 MEQ TABLET PO SCH ×3 (09:21→20:23)
[2020-04-19] MEDS: MAGNESIUM CHLORIDE 64 MG TABLET PO SCH (09:21)
[2020-04-19] MEDS: CYPROHEPTADINE 4 MG TABLET PO SCH ×2 (09:21→20:23)
[2020-04-19] MEDS: LEVOFLOXACIN INJ 750 MG in PREMIX 1 EACH IV SCH (09:21)
[2020-04-19] MEDS: OMEGA 3 ACID ETHYL ESTERS 1 GM CAPSULE PO SCH ×2 (09:21→20:23)
[2020-04-19] MEDS: FINASTERIDE 5 MG TABLET PO SCH (09:22)
[2020-04-19] MEDS: MULTIVITAMIN (BEROCCA) TABLET PO SCH (09:22)
[2020-04-19] MEDS: POLYETHYLENE GLYCOL POWDER 17 GM PACK PO SCH ×2 (09:22→20:23)
[2020-04-19] MEDS: CHOLECALCIFEROL 1,000 UNIT TABLET PO SCH (09:26)
[2020-04-19] MEDS: allopurinoL 100 MG TABLET PO SCH (09:26)
[2020-04-19] MEDS: ASCORBIC ACID 500 MG TABLET PO SCH ×2 (09:26→20:22)
[2020-04-19] MEDS: ATORVASTATIN 40 MG TABLET PO SCH (09:26)
[2020-04-19] MEDS: BRIMONIDINE 0.2% OPH SOLN 5 ML BOTTLE BOTH EYES SCH ×2 (10:53→22:46)
[2020-04-19] MEDS: LATANOPROST 0.005% OPH SOLN 2.5 ML BOTTLE BOTH EYES SCH (18:12)
[2020-04-19] MEDS: ENOXAPARIN 30 MG/0.3 ML SYRINGE SUBCUT SCH (20:23)
[2020-04-19] MEDS: TAMSULOSIN 0.4 MG CAPSULE PO SCH (20:23)
[2020-04-20 06:06] LABS: Basophils # 0.1 10*3/uL (0.0-0.2); Basophils % 0.6 % (0.0-0.8); Eosinophils # 0.3 10*3/uL (0.0-0.87); Eosinophils % 1.9 % (0.00-10.9); Hematocrit 25.6 VOL% (42.0-52.0); Immature Granulocytes % 6.7 %; Immature Granulocytes Absolute 0.95 #; Lymphocytes # 2.3 10*3/uL (1.4-4.0); Lymphocytes % 16.3 % (21.2-54.2); Mean Corpuscular HGB Conc 31.3 GM/DL (32-36); Mean Platelet Volume 9.9 FL (9.6-12.0); Monocytes % 7.2 % (1.7-12.7); Neutrophils % 67.3 % (38.7-73.9); Platelet Count 611 T/CUMM (130-400); Red Blood Count 2.64 MC/CUMM (3.8-5.5); Red Cell Distribution Width 14.7 % (9.3-17.3); White Blood Count 14.2 T/CUMM (4-12)
[2020-04-20 06:33] LABS: Hypochromasia Slight; Lymphocytes 22 % (20-55); Metamyelocytes 1 %; Segmented Neutrophils 66 % (50-85); Total Cells Counted 100
[2020-04-20 06:34] LABS: Atypical Lymphocytes Few; Microcytosis Slight
[2020-04-20 06:48] LABS: Osmolality,Calculated 277.5 MOS/KG (273-304)
[2020-04-20] MEDS: INSULIN LISPRO 100 UNIT/ML SUBCUT SCH ×2 (07:58→12:02)
[2020-04-20] MEDS: MAGNESIUM CHLORIDE 64 MG TABLET PO SCH (08:51)
[2020-04-20] MEDS: ATORVASTATIN 40 MG TABLET PO SCH (08:51)
[2020-04-20] MEDS: FINASTERIDE 5 MG TABLET PO SCH (08:51)
[2020-04-20] MEDS: MULTIVITAMIN (BEROCCA) TABLET PO SCH (08:51)
[2020-04-20] MEDS: CYPROHEPTADINE 4 MG TABLET PO SCH (08:51)
[2020-04-20] MEDS: DOCUSATE SODIUM 100 MG CAPSULE PO SCH (08:51)
[2020-04-20] MEDS: OMEGA 3 ACID ETHYL ESTERS 1 GM CAPSULE PO SCH (08:51)
[2020-04-20] MEDS: PANTOPRAZOLE 40 MG TABLET PO SCH (08:51)
[2020-04-20] MEDS: allopurinoL 100 MG TABLET PO SCH (08:51)
[2020-04-20] MEDS: CHOLECALCIFEROL 1,000 UNIT TABLET PO SCH (08:51)
[2020-04-20] MEDS: ASCORBIC ACID 500 MG TABLET PO SCH (08:52)
[2020-04-20] MEDS: SODIUM CHLORIDE 0.45% 1,000 ML IV SCH (08:52)
[2020-04-20] MEDS: BRIMONIDINE 0.2% OPH SOLN 5 ML BOTTLE BOTH EYES SCH (08:52)
[2020-04-20] MEDS: LEVOFLOXACIN INJ 750 MG in PREMIX 1 EACH IV SCH (08:54)
[2020-04-20] MEDS: POLYETHYLENE GLYCOL POWDER 17 GM PACK PO SCH (09:17)
[2020-04-20] MEDS: POTASSIUM CHLORIDE 20 MEQ TABLET PO SCH (09:45)
[2020-04-20 11:40] VITALS: BP 81/45
== END 2020-04-20 13:55 | disposition swing bed (61) | DRG 871 ==
LOC: N.ED 14:14 → SUATTDRO 18:39 → N.EDINP 18:39 → N.3E 20:07 → N.ICU 23:40 → N.3E 04-10 17:42
PROVIDERS: ADMIT Hospitalist; ATTEND Family Medicine